=== PATIENT | female | born 1955 | race African-American/Black ===

== ENCOUNTER 2018-01-21 07:42 | Emergency (ER) | payer BC ==
[~2018-01-21] VITALS: Ht 160 cm; Wt 71.0 kg
[2018-01-21] MEDS ORDERED: KETOROLAC 30MG/ML VIAL IM ONE (08:45)
[2018-01-21 09:51] VITALS: BP 150/68
== END 2018-01-21 09:53 | disposition home or self-care (01) ==
LOC: ER 08:45
DX: M43.02 Spondylolysis, cervical region (principal); S16.1XXA Strain of muscle, fascia and tendon at neck level, initial encounter; M25.511 Pain in right shoulder; M25.512 Pain in left shoulder; R03.0 Elevated blood-pressure reading, without diagnosis of hypertension; X58.XXXA Exposure to other specified factors, initial encounter; Y93.9 Activity, unspecified; Y92.9 Unspecified place or not applicable; E11.9 Type 2 diabetes mellitus without complications; Z90.710 Acquired absence of both cervix and uterus; Z79.899 Other long term (current) drug therapy
CPT/HCPCS: 72040; 96372; 99284; J1885

== ENCOUNTER 2018-08-11 01:59 | Emergency (ER) | payer BC ==
[~2018-08-11] VITALS: Ht 160 cm; Wt 69.5 kg
[2018-08-11] MEDS ORDERED: IBUPROFEN 800MG TABLET PO ONE (03:30)
[2018-08-11 03:44] VITALS: BP 153/77
== END 2018-08-11 03:46 | disposition home or self-care (01) ==
LOC: ER 01:59
DX: S16.1XXA Strain of muscle, fascia and tendon at neck level, initial encounter (principal); M25.511 Pain in right shoulder; M54.6 Pain in thoracic spine; E11.9 Type 2 diabetes mellitus without complications; Z90.710 Acquired absence of both cervix and uterus; X58.XXXA Exposure to other specified factors, initial encounter; Y93.89 Activity, other specified; Y92.89 Other specified places as the place of occurrence of the external cause; Y99.8 Other external cause status
CPT/HCPCS: 99283

== ENCOUNTER → 2020-02-15 | Outpatient (CLI) | payer BC | END | disposition home or self-care (01) | LOC: RAD 07:51 | PROVIDERS: ATTEND Internal Medicine Pulmonary Disease | DX: R07.9 Chest pain, unspecified (principal) | CPT/HCPCS: 71046 ==

== ENCOUNTER → 2020-02-27 | Outpatient (CLI) | payer BC ==
[2020-02-27 06:51] LABS: CLARITY URINE CLEAR (CLEAR); COLOR URINE YELLOW (YELLOW); KETONES URINE NEGATIVE (NEGATIVE); LEUKOCYTE ESTERASE URINE TRACE (NEGATIVE); NITRITE URINE NEGATIVE (NEGATIVE); OCCULT BLOOD URINE NEGATIVE (NEGATIVE); PROTEIN URINE NEGATIVE (NEGATIVE); SPECIFIC GRAVITY URINE 1.025 (1.005-1.030); UROBILINOGEN URINE 0.2 E.U./dL (0.2-1.0)
[2020-02-27 06:58] LABS: PARTIAL THROMBOPLASTIN TIME 27.9 sec (23.4-31.0); PROTHROMBIN TIME 10.6 sec (9.6-11.0)
[2020-02-27 07:13] LABS: CHLORIDE 103 mEq/L (98-107)
[2020-02-27 07:18] LABS: BASOPHILS % 0.3 % (0.0-2.0); EOSINOPHILS % 2.1 % (0.0-5.0); HEMATOCRIT. 34.1 % (36.0-48.0); HEMOGLOBIN. 10.8 g/dL (12.0-16.0); LYMPHOCYTES % 8.9 % (20.0-50.0); MEAN CORPUSCULAR HEMOGLOBIN 23.9 pg (28.0-32.0); MEAN CORPUSCULAR VOLUME 75.6 fL (81.0-99.0); MEAN PLATELET VOLUME 7.5 fl (7.4-10.4); MONOCYTES % 6.4 % (2.0-8.0); NEUTROPHILS % 82.3 % (40.0-76.0); PLATELET 473 x1000/uL (130-400); RED BLOOD CELL COUNT 4.51 mill/uL (4.2-5.4); RED CELL DISTRIBUTION WIDTH 16.4 % (11.6-14.6)
[2020-02-27 07:23] LABS: LDL CHOLESTEROL 106 mg/dL (5-100)
[2020-02-27 07:24] LABS: HDL CHOLESTEROL 53 mg/dL (40-59)
== END | disposition home or self-care (01) ==
LOC: LAB 02-26 08:18
PROVIDERS: ATTEND Internal Medicine Pulmonary Disease
DX: E11.9 Type 2 diabetes mellitus without complications (principal); K92.1 Melena
CPT/HCPCS: 36415; 80053; 80061; 81003; 83036; 85025

== ENCOUNTER → 2020-03-12 | Outpatient (CLI) | payer BC ==
[~2020-03-12] MED LIST: BARIUM SULFATE 450ML ORAL SUSP ONE; IOHEXOL-300 100 ML BOTTLE ONE
== END | disposition home or self-care (01) ==
LOC: CT 07:59
PROVIDERS: ATTEND Internal Medicine Pulmonary Disease
DX: C18.3 Malignant neoplasm of hepatic flexure (principal); C18.1 Malignant neoplasm of appendix; Z90.710 Acquired absence of both cervix and uterus
CPT/HCPCS: 74177; Q9967; Z7610

== ENCOUNTER → 2020-03-19 | Outpatient (CLI) | payer BC ==
[2020-03-19 06:33] LABS: CLARITY URINE CLEAR (CLEAR); COLOR URINE YELLOW (YELLOW); KETONES URINE TRACE (NEGATIVE); LEUKOCYTE ESTERASE URINE NEGATIVE (NEGATIVE); NITRITE URINE NEGATIVE (NEGATIVE); OCCULT BLOOD URINE NEGATIVE (NEGATIVE); PROTEIN URINE NEGATIVE (NEGATIVE); SPECIFIC GRAVITY URINE 1.034 (1.005-1.030)
== END | disposition home or self-care (01) ==
LOC: LAB 06:10
PROVIDERS: ATTEND Internal Medicine Pulmonary Disease
DX: N39.0 Urinary tract infection, site not specified (principal)
CPT/HCPCS: 81003

== ENCOUNTER → 2020-05-16 | Outpatient (CLI) | payer BC | END | disposition home or self-care (01) | LOC: MRI 11:49 | PROVIDERS: ATTEND Specialist | DX: R10.9 Unspecified abdominal pain (principal) | CPT/HCPCS: 72195 ==

== ENCOUNTER → 2020-06-20 | Outpatient (CLI) | payer BC ==
[~2020-06-20] MED LIST changes: -BARIUM SULFATE 450ML ORAL SUSP ONE; +GADOTERATE MEGLUMINE 5 MMOL/10 ML VIAL IV ONE
== END | disposition home or self-care (01) ==
LOC: MRI 08:00
DX: K86.2 Cyst of pancreas (principal); R92.1 Mammographic calcification found on diagnostic imaging of breast; R91.1 Solitary pulmonary nodule; K63.89 Other specified diseases of intestine
CPT/HCPCS: 71260; 72197; 74177; A9577; Q9967

== ENCOUNTER → 2020-07-01 | Outpatient (CLI) | payer BC ==
[2020-07-01 10:57] LABS: BASOPHILS % 0.3 % (0.0-2.0); EOSINOPHILS % 1.9 % (0.0-5.0); HEMATOCRIT. 27.8 % (36.0-48.0); HEMOGLOBIN. 8.3 g/dL (12.0-16.0); LYMPHOCYTES % 8.4 % (20.0-50.0); MEAN CORPUSCULAR VOLUME 67.1 fL (81.0-99.0); MEAN PLATELET VOLUME 6.2 fl (7.4-10.4); MONOCYTES % 9.2 % (2.0-8.0); NEUTROPHILS % 80.2 % (40.0-76.0); PLATELET 639 x1000/uL (130-400); RED BLOOD CELL COUNT 4.15 mill/uL (4.2-5.4)
[2020-07-01 11:00] LABS: CLARITY URINE CLEAR (CLEAR); COLOR URINE YELLOW (YELLOW); KETONES URINE NEGATIVE (NEGATIVE); LEUKOCYTE ESTERASE URINE NEGATIVE (NEGATIVE); NITRITE URINE NEGATIVE (NEGATIVE); OCCULT BLOOD URINE NEGATIVE (NEGATIVE); PH URINE 5.5 (4.5-8.0); PROTEIN URINE NEGATIVE (NEGATIVE); UROBILINOGEN URINE 0.2 E.U./dL (0.2-1.0)
[2020-07-01 11:23] LABS: PARTIAL THROMBOPLASTIN TIME 26.3 sec (23.4-31.0); PROTHROMBIN TIME 10.3 sec (9.6-11.0)
[2020-07-01 11:54] LABS: CHLORIDE 105 mEq/L (98-107)
[2020-07-01 13:52] LABS: PLATELET ESTIMATE INCREASED
== END | disposition home or self-care (01) ==
LOC: RAD 10:29
PROVIDERS: ATTEND Internal Medicine Pulmonary Disease
DX: Z01.818 Encounter for other preprocedural examination (principal); K63.9 Disease of intestine, unspecified
CPT/HCPCS: 36415; 71046; 80048; 81003; 85025; 93005

== ENCOUNTER → 2020-07-08 | Outpatient (CLI) | payer BC ==
[~2020-07-08] MED LIST changes: +EMPA10TA PO; -GADOTERATE MEGLUMINE 5 MMOL/10 ML VIAL IV ONE; -IOHEXOL-300 100 ML BOTTLE ONE; +METF-416 PO
== END | disposition home or self-care (01) ==
LOC: LAB 09:20
PROVIDERS: ATTEND Surgery
DX: Z01.812 Encounter for preprocedural laboratory examination (principal); Z20.822 Contact with and (suspected) exposure to COVID-19
CPT/HCPCS: 87426

== ENCOUNTER 2020-07-09 05:23 | Inpatient (IN) | payer BC ==
[~2020-07-09] VITALS: Ht 157.5 cm; Wt 65.8 kg
[2020-07-09] VITALS (21 sets, daily range): BP systolic 102–130; BP diastolic 54–97
[2020-07-09] MEDS ORDERED: SODIUM CHLORIDE 0.9% 1,000 ML IV SCH (05:30)
[2020-07-09] MEDS ORDERED: SKIN ADHESIVE 0.7 GM EA TOP ONE (06:41)
[2020-07-09] MEDS ORDERED: BACITRACIN 50,000 UNITS/VIAL ONE (06:41)
[2020-07-09] MEDS ORDERED: BUPIVACAINE HCL 0.5% (5MG/ML) 50ML ONE (06:41)
[2020-07-09] MEDS ORDERED: MIDAZOLAM HCL 2 MG/2 ML VIAL ONE (07:01)
[2020-07-09] MEDS ORDERED: PROPOFOL 200MG/20ML VIAL IV ONE (07:01)
[2020-07-09] MEDS ORDERED: ROCURONIUM BROMIDE 10MG/ML VIAL 5ML IV ONE (07:01)
[2020-07-09] MEDS ORDERED: FENTANYL CITRATE/PF 50MCG/ML 5ML VIAL ONE ×2 (07:01→08:47)
[2020-07-09] MEDS ORDERED: SUCCINYLCHOLINE CHLORIDE 200MG/10ML IV ONE (07:02)
[2020-07-09] MEDS ORDERED: CEFAZOLIN SODIUM 1000MG/VIAL ONE (07:02)
[2020-07-09] MEDS ORDERED: LIDOCAINE HCL 2% JELLY 5ML ONE (07:02)
[2020-07-09] MEDS ORDERED: ONDANSETRON HCL 4MG/2ML INJ ONE (07:02)
[2020-07-09] MEDS ORDERED: LIDOCAINE HCL 1% 20ML VIAL (Pyxis) INJ ONE (07:02)
[2020-07-09] MEDS ORDERED: METOCLOPRAMIDE HCL 10MG/2ML VIAL ONE (07:02)
[2020-07-09] MEDS ORDERED: MORPHINE SULFATE 2 MG/ML CPJ (NOT FOR IM USE) IV PRN ×2 (07:15→10:45)
[2020-07-09] MEDS ORDERED: GLYCOPYRROLATE 0.2 MG/ML 2ML VIAL ONE (07:18)
[2020-07-09] MEDS ORDERED: NEOSTIGMINE METHYLSULFATE 1MG/ML 10 ML VIAL ONE (07:18)
[2020-07-09] MEDS ORDERED: EMPA10TA PO (08:09)
[2020-07-09] MEDS ORDERED: METF-416 PO (08:11)
[2020-07-09] MEDS ORDERED: PHENYLEPHRINE HCL 10 MG/ML 1ML (IV VIAL) IV ONE (08:46)
[2020-07-09] MEDS ORDERED: SODIUM CHLORIDE 0.9% 1,000 ML IV ONE (10:45)
[2020-07-09] MEDS ORDERED: MEPERIDINE HCL/PF 25MG/ML CPJ IV PRN (10:45)
[2020-07-09] MEDS ORDERED: ONDANSETRON HCL 4MG/2ML INJ IV PRN (10:45)
[2020-07-09] MEDS ORDERED: HYDROMORPHONE HCL/PF 2MG/ML CPJ IV PRN (10:45)
[2020-07-09] MEDS ORDERED: NALOXONE INJ IV PRN (12:00)
[2020-07-09] MEDS ORDERED: ONDANSETRON INJ IV PRN (12:00)
[2020-07-09] MEDS ORDERED: DIPHENHYDRAMINE INJ IV PRN (12:00)
[2020-07-09] MEDS: HYDROMORPHONE PCA 10MG/50ML IV PRN (12:15)
[2020-07-09 13:03] LABS: HEMATOCRIT 37.2 % (36.0-48.0); HEMOGLOBIN 11.9 g/dL (12.0-16.0); MEAN CORPUSCULAR HEMOGLOBIN 23.8 pg (28.0-32.0); MEAN CORPUSCULAR VOLUME 74.3 fL (81.0-99.0); PLATELET 413 x1000/uL (130-400); RED BLOOD CELL COUNT 5.01 mill/uL (4.2-5.4); RED CELL DISTRIBUTION WIDTH 25.5 % (11.6-14.6)
[2020-07-09] MEDS ORDERED: DEXTROSE 50% WATER 50ML SYRINGE IV PRN (20:15)
[2020-07-09] MEDS: DEXT 5%/0.45% NACL KCL 20MEQ/L 1,000 ML IV SCH (20:53)
[2020-07-09] MEDS: BLOOD SUGAR DIAGNOSTIC STRIP TEST SCH (21:00)
[2020-07-09] MEDS: INSULIN LISPRO 100 UNITS/ML SUBCUT SCH (21:00)
[2020-07-10] VITALS (93 sets, daily range): BP systolic 73–126; BP diastolic 31–64
[2020-07-10] MEDS ORDERED: SODIUM CHLORIDE 0.9% 250 ML IV ONE ×2 (02:45→06:30)
[2020-07-10] MEDS: HYDROMORPHONE PCA 10MG/50ML IV PRN (03:48)
[2020-07-10 05:45] LABS: CHLORIDE 117 mEq/L (98-107)
[2020-07-10 05:52] LABS: HEMATOCRIT. 34.8 % (36.0-48.0); HEMOGLOBIN. 10.6 g/dL (12.0-16.0); MEAN CORPUSCULAR HEMOGLOBIN 22.9 pg (28.0-32.0); MEAN CORPUSCULAR VOLUME 74.9 fL (81.0-99.0); MEAN PLATELET VOLUME 6.8 fl (7.4-10.4); PLATELET 383 x1000/uL (130-400); RED BLOOD CELL COUNT 4.65 mill/uL (4.2-5.4)
[2020-07-10] MEDS: DEXT 5%/0.45% NACL KCL 20MEQ/L 1,000 ML IV SCH ×2 (06:21→15:51)
[2020-07-10 07:20] LABS: PLATELET ESTIMATE NORMAL
[2020-07-10] MEDS: BLOOD SUGAR DIAGNOSTIC STRIP TEST SCH ×4 (07:50→21:07)
[2020-07-10] MEDS: INSULIN LISPRO 100 UNITS/ML SUBCUT SCH ×4 (08:20→21:00)
[2020-07-10 08:26] LABS: T4 FREE 1.48 ng/dL (0.76-1.46)
[2020-07-10] MEDS: ENOXAPARIN 40MG/0.4ML SYR SUBCUT SCH (09:12)
[2020-07-10] MEDS ORDERED: SODIUM CHLORIDE 0.9% 500 ML IV ONE (09:45)
[2020-07-10] MEDS ORDERED: IOHEXOL-350 100 ML BOTTLE ONE ×2 (14:23→14:46)
[2020-07-10] MEDS ORDERED: METOPROLOL TARTRATE 5MG/5ML VIAL IV NR (15:45)
[2020-07-10] MEDS: METOPROLOL TARTRATE 5MG/5ML VIAL IV PRN ×3 (17:55→23:20)
[2020-07-11] VITALS (91 sets, daily range): BP systolic 100–139; BP diastolic 39–121
[2020-07-11] MEDS: METOPROLOL TARTRATE 5MG/5ML VIAL IV PRN ×4 (01:56→20:19)
[2020-07-11] MEDS: DEXT 5%/0.45% NACL KCL 20MEQ/L 1,000 ML IV SCH ×3 (01:56→22:03)
[2020-07-11] MEDS ORDERED: MORPHINE SULFATE 4 MG/ML CPJ (NOT FOR IM USE) IV ONE (03:12)
[2020-07-11] MEDS: MORPHINE SULFATE 4 MG/ML CPJ (NOT FOR IM USE) IV PRN ×2 (03:32→08:44)
[2020-07-11 05:38] LABS: HEMATOCRIT. 28.8 % (36.0-48.0); HEMOGLOBIN. 9.1 g/dL (12.0-16.0); MEAN CORPUSCULAR HEMOGLOBIN 23.2 pg (28.0-32.0); MEAN CORPUSCULAR VOLUME 73.5 fL (81.0-99.0); MEAN PLATELET VOLUME 7.1 fl (7.4-10.4); PLATELET 368 x1000/uL (130-400); RED BLOOD CELL COUNT 3.92 mill/uL (4.2-5.4); RED CELL DISTRIBUTION WIDTH 24.9 % (11.6-14.6)
[2020-07-11 05:43] LABS: CHLORIDE 115 mEq/L (98-107)
[2020-07-11 05:57] LABS: PHOSPHORUS 1.3 mg/dL (2.5-4.9)
[2020-07-11 07:26] LABS: PLATELET ESTIMATE NORMAL
[2020-07-11] MEDS: INSULIN LISPRO 100 UNITS/ML SUBCUT SCH ×4 (08:20→22:03)
[2020-07-11] MEDS: ENOXAPARIN 40MG/0.4ML SYR SUBCUT SCH (08:45)
[2020-07-11] MEDS: BLOOD SUGAR DIAGNOSTIC STRIP TEST SCH ×4 (08:45→21:00)
[2020-07-11] MEDS ORDERED: MORPHINE SULFATE 4 MG/ML CPJ (NOT FOR IM USE) IV PRN (10:00)
[2020-07-11] MEDS ORDERED: POTASSIUM PHOS,M-BASIC-D-BASIC 30 MMOL in DEXT 5% WATER 500 ML IV SCH (11:00)
[2020-07-11] MEDS ORDERED: HYDROMORPHONE HCL/PF 2MG/ML CPJ IV PRN (11:45)
[2020-07-11] MEDS: HYDROMORPHONE HCL/PF 2MG/ML CPJ IV PRN ×4 (13:24→23:56)
[2020-07-12] VITALS (81 sets, daily range): BP systolic 105–145; BP diastolic 50–78
[2020-07-12] MEDS: METOPROLOL TARTRATE 5MG/5ML VIAL IV PRN ×4 (01:56→18:35)
[2020-07-12] MEDS: HYDROMORPHONE HCL/PF 2MG/ML CPJ IV PRN ×4 (04:31→23:27)
[2020-07-12 06:20] LABS: HEMATOCRIT. 27.7 % (36.0-48.0); HEMOGLOBIN. 8.8 g/dL (12.0-16.0); MEAN CORPUSCULAR HEMOGLOBIN 22.9 pg (28.0-32.0); MEAN CORPUSCULAR VOLUME 71.9 fL (81.0-99.0); MEAN PLATELET VOLUME 6.8 fl (7.4-10.4); PLATELET 361 x1000/uL (130-400); RED BLOOD CELL COUNT 3.85 mill/uL (4.2-5.4); RED CELL DISTRIBUTION WIDTH 25.9 % (11.6-14.6)
[2020-07-12 06:25] LABS: CHLORIDE 108 mEq/L (98-107)
[2020-07-12 06:33] LABS: PHOSPHORUS 2.3 mg/dL (2.5-4.9)
[2020-07-12 06:34] LABS: TOTAL IRON BINDING CAPACITY 184 ug/dL (250-450)
[2020-07-12] MEDS: BLOOD SUGAR DIAGNOSTIC STRIP TEST SCH ×4 (08:12→20:38)
[2020-07-12] MEDS: ENOXAPARIN 40MG/0.4ML SYR SUBCUT SCH (08:21)
[2020-07-12] MEDS: INSULIN LISPRO 100 UNITS/ML SUBCUT SCH ×4 (08:22→20:38)
[2020-07-12] MEDS: DEXT 5%/0.45% NACL KCL 20MEQ/L 1,000 ML IV SCH ×2 (08:51→18:19)
[2020-07-12 10:43] LABS: PLATELET ESTIMATE NORMAL
[2020-07-13] VITALS (12 sets, daily range): BP systolic 116–130; BP diastolic 55–74
[2020-07-13] MEDS: HYDROMORPHONE HCL/PF 2MG/ML CPJ IV PRN ×5 (02:40→21:55)
[2020-07-13] MEDS: DEXT 5%/0.45% NACL KCL 20MEQ/L 1,000 ML IV SCH ×2 (04:00→14:34)
[2020-07-13] MEDS: BLOOD SUGAR DIAGNOSTIC STRIP TEST SCH ×4 (05:56→21:32)
[2020-07-13] MEDS: INSULIN LISPRO 100 UNITS/ML SUBCUT SCH ×4 (06:40→21:00)
[2020-07-13 08:23] LABS: HEMATOCRIT. 26.3 % (36.0-48.0); HEMOGLOBIN. 8.6 g/dL (12.0-16.0); MEAN CORPUSCULAR HEMOGLOBIN 23.8 pg (28.0-32.0); MEAN CORPUSCULAR VOLUME 72.4 fL (81.0-99.0); MEAN PLATELET VOLUME 7.4 fl (7.4-10.4); PLATELET 366 x1000/uL (130-400); RED BLOOD CELL COUNT 3.63 mill/uL (4.2-5.4); RED CELL DISTRIBUTION WIDTH 26.6 % (11.6-14.6)
[2020-07-13 08:39] LABS: CHLORIDE 107 mEq/L (98-107)
[2020-07-13 08:47] LABS: PHOSPHORUS 2.8 mg/dL (2.5-4.9)
[2020-07-13] MEDS: ENOXAPARIN 40MG/0.4ML SYR SUBCUT SCH (09:48)
[2020-07-13] MEDS: METOPROLOL TARTRATE 5MG/5ML VIAL IV PRN ×2 (09:57→19:01)
[2020-07-13] MEDS: POTASSIUM CHLORIDE 20MEQ TABLET SR PO SCH ×2 (14:34→19:00)
[2020-07-13] MEDS: PIPERACILLIN/TAZOBACTAM 3.375 G in DEXT 5% WATER 100 ML IV SCH ×2 (17:54→21:37)
[2020-07-13 22:16] LABS: NUCLEATED RED BLOOD CELLS 1 /100 WBC
[2020-07-13 22:17] LABS: PLATELET ESTIMATE NORMAL
[2020-07-14] VITALS (12 sets, daily range): BP systolic 103–136; BP diastolic 53–73
[2020-07-14] MEDS: DEXT 5%/0.45% NACL KCL 20MEQ/L 1,000 ML IV SCH ×3 (00:48→20:00)
[2020-07-14] MEDS: HYDROMORPHONE HCL/PF 2MG/ML CPJ IV PRN ×6 (02:24→22:56)
[2020-07-14] MEDS: PIPERACILLIN/TAZOBACTAM 3.375 G in DEXT 5% WATER 100 ML IV SCH ×4 (05:26→22:18)
[2020-07-14] MEDS: BLOOD SUGAR DIAGNOSTIC STRIP TEST SCH ×4 (06:56→20:33)
[2020-07-14] MEDS: INSULIN LISPRO 100 UNITS/ML SUBCUT SCH ×4 (06:57→20:33)
[2020-07-14 07:49] LABS: HEMATOCRIT. 24.8 % (36.0-48.0); MEAN CORPUSCULAR HEMOGLOBIN 23.1 pg (28.0-32.0); MEAN CORPUSCULAR VOLUME 71.5 fL (81.0-99.0); MEAN PLATELET VOLUME 7.2 fl (7.4-10.4); PLATELET 384 x1000/uL (130-400); RED BLOOD CELL COUNT 3.47 mill/uL (4.2-5.4); RED CELL DISTRIBUTION WIDTH 26.8 % (11.6-14.6)
[2020-07-14 07:59] LABS: CHLORIDE 106 mEq/L (98-107)
[2020-07-14 08:07] LABS: PHOSPHORUS 2.5 mg/dL (2.5-4.9)
[2020-07-14] MEDS: ENOXAPARIN 40MG/0.4ML SYR SUBCUT SCH (09:00)
[2020-07-14] MEDS ORDERED: POTASSIUM CHLORIDE 20MEQ/PACKET PO NR ×2 (09:45→15:00)
[2020-07-14 13:41] LABS: PLATELET ESTIMATE NORMAL
[2020-07-14] MEDS ORDERED: POTASSIUM CHLORIDE INJ 40 MEQ in DEXT 5% WATER 250 ML IV SCH (16:00)
[2020-07-15] VITALS (11 sets, daily range): BP systolic 100–127; BP diastolic 50–67
[2020-07-15] MEDS: PIPERACILLIN/TAZOBACTAM 3.375 G in DEXT 5% WATER 100 ML IV SCH ×4 (04:50→21:46)
[2020-07-15] MEDS: HYDROMORPHONE HCL/PF 2MG/ML CPJ IV PRN ×5 (04:56→21:47)
[2020-07-15] MEDS: DEXT 5%/0.45% NACL KCL 20MEQ/L 1,000 ML IV SCH ×3 (06:00→16:00)
[2020-07-15] MEDS: METOPROLOL TARTRATE 5MG/5ML VIAL IV PRN (06:15)
[2020-07-15] MEDS: BLOOD SUGAR DIAGNOSTIC STRIP TEST SCH ×4 (06:30→21:16)
[2020-07-15] MEDS: IRON SUCROSE COMPLEX 100 MG/5 ML ML IV SCH (08:44)
[2020-07-15] MEDS: ENOXAPARIN 40MG/0.4ML SYR SUBCUT SCH (08:45)
[2020-07-15] MEDS: INSULIN LISPRO 100 UNITS/ML SUBCUT SCH ×4 (08:52→21:00)
[2020-07-15 09:40] LABS: HEMATOCRIT. 25.5 % (36.0-48.0); MEAN CORPUSCULAR HEMOGLOBIN 22.7 pg (28.0-32.0); MEAN CORPUSCULAR VOLUME 72.1 fL (81.0-99.0); MEAN PLATELET VOLUME 7.2 fl (7.4-10.4); PLATELET 418 x1000/uL (130-400); RED BLOOD CELL COUNT 3.54 mill/uL (4.2-5.4); RED CELL DISTRIBUTION WIDTH 27.5 % (11.6-14.6)
[2020-07-15 09:53] LABS: CHLORIDE 105 mEq/L (98-107)
[2020-07-15] MEDS ORDERED: POTASSIUM CHLORIDE 20MEQ/PACKET PO NR ×2 (11:00→19:15)
[2020-07-15 11:03] LABS: PLATELET ESTIMATE NORMAL
[2020-07-15 19:09] LABS: CHLORIDE 104 mEq/L (98-107)
[2020-07-16] VITALS: BP 118/57
[2020-07-16] MEDS: HYDROMORPHONE HCL/PF 2MG/ML CPJ IV PRN ×4 (02:49→21:52)
[2020-07-16 04:00] VITALS: BP 113/51
[2020-07-16] MEDS: PIPERACILLIN/TAZOBACTAM 3.375 G in DEXT 5% WATER 100 ML IV SCH ×4 (05:15→22:42)
[2020-07-16] MEDS: INSULIN LISPRO 100 UNITS/ML SUBCUT SCH ×4 (05:35→22:50)
[2020-07-16] MEDS: DEXT 5%/0.45% NACL KCL 20MEQ/L 1,000 ML IV SCH ×3 (05:35→22:41)
[2020-07-16] MEDS: BLOOD SUGAR DIAGNOSTIC STRIP TEST SCH ×4 (05:35→21:00)
[2020-07-16 07:46] LABS: HEMATOCRIT. 23.7 % (36.0-48.0); HEMOGLOBIN. 7.7 g/dL (12.0-16.0); MEAN CORPUSCULAR HEMOGLOBIN 23.6 pg (28.0-32.0); MEAN CORPUSCULAR VOLUME 72.6 fL (81.0-99.0); MEAN PLATELET VOLUME 7.7 fl (7.4-10.4); PLATELET 426 x1000/uL (130-400); RED BLOOD CELL COUNT 3.26 mill/uL (4.2-5.4); RED CELL DISTRIBUTION WIDTH 27.7 % (11.6-14.6)
[2020-07-16 07:53] LABS: CHLORIDE 102 mEq/L (98-107)
[2020-07-16 08:00] VITALS: BP 142/76
[2020-07-16 08:02] LABS: PHOSPHORUS 2.2 mg/dL (2.5-4.9)
[2020-07-16] MEDS: IRON SUCROSE COMPLEX 100 MG/5 ML ML IV SCH (08:26)
[2020-07-16] MEDS: ENOXAPARIN 40MG/0.4ML SYR SUBCUT SCH (08:26)
[2020-07-16 11:34] VITALS: BP 121/62
[2020-07-16] MEDS ORDERED: POTASSIUM CHLORIDE 20MEQ/PACKET PO NR ×2 (13:15→20:00)
[2020-07-16 16:00] VITALS: BP 135/71
[2020-07-16] MEDS ORDERED: POTASSIUM PHOS,M-BASIC-D-BASIC 30 MMOL in DEXTROSE 5% WATER 1,000 ML IV SCH (18:45)
[2020-07-16 20:00] VITALS: BP 103/70
[2020-07-16 22:40] LABS: PLATELET ESTIMATE INCREASED
[2020-07-17] VITALS: BP 126/59
[2020-07-17] MEDS: ONDANSETRON HCL 4MG/2ML INJ IV PRN (00:34)
[2020-07-17] MEDS: HYDROMORPHONE HCL/PF 2MG/ML CPJ IV PRN ×4 (01:59→19:40)
[2020-07-17] MEDS: PIPERACILLIN/TAZOBACTAM 3.375 G in DEXT 5% WATER 100 ML IV SCH ×3 (04:26→15:35)
[2020-07-17] MEDS: METOPROLOL TARTRATE 5MG/5ML VIAL IV PRN (04:30)
[2020-07-17 06:43] LABS: HEMATOCRIT. 25.4 % (36.0-48.0); HEMOGLOBIN. 8.1 g/dL (12.0-16.0); MEAN CORPUSCULAR HEMOGLOBIN 23.1 pg (28.0-32.0); MEAN CORPUSCULAR VOLUME 72.7 fL (81.0-99.0); MEAN PLATELET VOLUME 7.8 fl (7.4-10.4); PLATELET 496 x1000/uL (130-400); RED BLOOD CELL COUNT 3.49 mill/uL (4.2-5.4); RED CELL DISTRIBUTION WIDTH 28.2 % (11.6-14.6)
[2020-07-17 06:56] LABS: CHLORIDE 100 mEq/L (98-107)
[2020-07-17] MEDS: BLOOD SUGAR DIAGNOSTIC STRIP TEST SCH ×4 (06:56→21:58)
[2020-07-17 07:06] LABS: PHOSPHORUS 2.4 mg/dL (2.5-4.9)
[2020-07-17] MEDS: INSULIN LISPRO 100 UNITS/ML SUBCUT SCH ×5 (07:50→22:04)
[2020-07-17 08:00] VITALS: BP 110/48
[2020-07-17] MEDS: IRON SUCROSE COMPLEX 100 MG/5 ML ML IV SCH (08:29)
[2020-07-17] MEDS: ENOXAPARIN 40MG/0.4ML SYR SUBCUT SCH (08:29)
[2020-07-17] MEDS: DEXT 5%/0.45% NACL KCL 20MEQ/L 1,000 ML IV SCH (08:41)
[2020-07-17] MEDS ORDERED: POTASSIUM CHLORIDE 20MEQ/PACKET PO NR (10:00)
[2020-07-17 12:14] VITALS: BP 135/63
[2020-07-17 13:36] LABS: ATYPICAL LYMPHOCYTES 1; NUCLEATED RED BLOOD CELLS 1 /100 WBC; PLATELET ESTIMATE INCREASED
[2020-07-17] MEDS ORDERED: POTASSIUM CHLORIDE INJ 40 MEQ in DEXT 5% WATER 500 ML IV ONE (14:00)
[2020-07-17] MEDS: POTASSIUM PHOS,M-BASIC-D-BASIC 30 MMOL in DEXT 5% WATER 500 ML IV SCH ×2 (15:34→15:41)
[2020-07-17 16:03] VITALS: BP 113/55
[2020-07-17] MEDS: DEXT 5%/0.45% NACL 1000ML 1,000 ML IV SCH (16:12)
[2020-07-17] MEDS: MEROPENEM 1,000 MG in SODIUM CHLORIDE 0.9% 100 ML IV SCH (16:19)
[2020-07-17] MEDS: FLUCONAZOLE 400MG/200ML BAG 200 ML IV SCH (16:21)
[2020-07-17] MEDS: POTASSIUM CHLORIDE INJ 40 MEQ in DEXT 5% WATER 250 ML IV SCH (18:06)
[2020-07-17 20:35] VITALS: BP 129/64
[2020-07-18] VITALS (7 sets, daily range): BP systolic 124–150; BP diastolic 57–80
[2020-07-18] MEDS: HYDROMORPHONE HCL/PF 2MG/ML CPJ IV PRN ×4 (01:50→23:58)
[2020-07-18] MEDS: MEROPENEM 1,000 MG in SODIUM CHLORIDE 0.9% 100 ML IV SCH ×3 (01:57→17:28)
[2020-07-18] MEDS: ONDANSETRON HCL 4MG/2ML INJ IV PRN ×2 (01:57→17:45)
[2020-07-18] MEDS: DEXT 5%/0.45% NACL 1000ML 1,000 ML IV SCH ×3 (01:59→21:45)
[2020-07-18] MEDS: POTASSIUM CHLORIDE INJ 40 MEQ in DEXT 5% WATER 250 ML IV SCH ×2 (02:08→15:00)
[2020-07-18 06:34] LABS: CHLORIDE 103 mEq/L (98-107)
[2020-07-18 06:43] LABS: PHOSPHORUS 2.6 mg/dL (2.5-4.9)
[2020-07-18] MEDS: BLOOD SUGAR DIAGNOSTIC STRIP TEST SCH ×4 (07:20→21:20)
[2020-07-18] MEDS: INSULIN LISPRO 100 UNITS/ML SUBCUT SCH ×4 (07:50→21:00)
[2020-07-18] MEDS: ENOXAPARIN 40MG/0.4ML SYR SUBCUT SCH (09:00)
[2020-07-18 09:33] LABS: HEMATOCRIT. 24.9 % (36.0-48.0); HEMOGLOBIN. 7.7 g/dL (12.0-16.0); MEAN CORPUSCULAR HEMOGLOBIN 22.7 pg (28.0-32.0); MEAN PLATELET VOLUME 7.6 fl (7.4-10.4); PLATELET 542 x1000/uL (130-400); RED BLOOD CELL COUNT 3.41 mill/uL (4.2-5.4); RED CELL DISTRIBUTION WIDTH 28.1 % (11.6-14.6)
[2020-07-18] MEDS: FLUCONAZOLE 400MG/200ML BAG 200 ML IV SCH (17:28)
[2020-07-18 20:18] LABS: PLATELET ESTIMATE INCREASED
[2020-07-19] VITALS: BP 140/61
[2020-07-19] MEDS: MEROPENEM 1,000 MG in SODIUM CHLORIDE 0.9% 100 ML IV SCH ×3 (02:03→17:44)
[2020-07-19 04:00] VITALS: BP 134/61
[2020-07-19] MEDS: HYDROMORPHONE HCL/PF 2MG/ML CPJ IV PRN ×3 (04:45→22:03)
[2020-07-19] MEDS: DEXT 5%/0.45% NACL 1000ML 1,000 ML IV SCH ×2 (04:48→22:02)
[2020-07-19 06:24] LABS: CHLORIDE 101 mEq/L (98-107)
[2020-07-19 06:30] LABS: PHOSPHORUS 2.3 mg/dL (2.5-4.9)
[2020-07-19 06:33] LABS: HEMATOCRIT. 23.3 % (36.0-48.0); HEMOGLOBIN. 7.5 g/dL (12.0-16.0); MEAN CORPUSCULAR HEMOGLOBIN 23.8 pg (28.0-32.0); MEAN CORPUSCULAR VOLUME 73.8 fL (81.0-99.0); MEAN PLATELET VOLUME 7.7 fl (7.4-10.4); PLATELET 440 x1000/uL (130-400); RED BLOOD CELL COUNT 3.16 mill/uL (4.2-5.4); RED CELL DISTRIBUTION WIDTH 28.8 % (11.6-14.6)
[2020-07-19] MEDS: BLOOD SUGAR DIAGNOSTIC STRIP TEST SCH ×4 (07:20→21:47)
[2020-07-19] MEDS: ENOXAPARIN 40MG/0.4ML SYR SUBCUT SCH (10:39)
[2020-07-19] MEDS: INSULIN LISPRO 100 UNITS/ML SUBCUT SCH ×4 (10:56→22:04)
[2020-07-19 13:55] LABS: PLATELET ESTIMATE INCREASED
[2020-07-19] MEDS ORDERED: POTASSIUM PHOS,M-BASIC-D-BASIC 15 MMOL in DEXT 5% WATER 245 ML IV NR (15:45)
[2020-07-19] MEDS: FLUCONAZOLE 400MG/200ML BAG 200 ML IV SCH (17:44)
[2020-07-19 20:00] VITALS: BP 133/58
[2020-07-19] MEDS: KETOROLAC 15MG/ML VIAL IV PRN (21:02)
[2020-07-19] MEDS: ONDANSETRON HCL 4MG/2ML INJ IV PRN (22:14)
[2020-07-20] VITALS: BP 132/58
[2020-07-20] MEDS: MEROPENEM 1,000 MG in SODIUM CHLORIDE 0.9% 100 ML IV SCH ×3 (02:06→18:22)
[2020-07-20 04:00] VITALS: BP 127/85
[2020-07-20] MEDS: HYDROMORPHONE HCL/PF 2MG/ML CPJ IV PRN (05:50)
[2020-07-20 06:33] LABS: CHLORIDE 97 mEq/L (98-107)
[2020-07-20 06:40] LABS: PHOSPHORUS 2.9 mg/dL (2.5-4.9)
[2020-07-20 06:48] LABS: HEMATOCRIT. 25.2 % (36.0-48.0); HEMOGLOBIN. 7.8 g/dL (12.0-16.0); MEAN CORPUSCULAR HEMOGLOBIN 22.8 pg (28.0-32.0); MEAN CORPUSCULAR VOLUME 73.6 fL (81.0-99.0); MEAN PLATELET VOLUME 7.8 fl (7.4-10.4); PLATELET 406 x1000/uL (130-400); RED BLOOD CELL COUNT 3.42 mill/uL (4.2-5.4); RED CELL DISTRIBUTION WIDTH 29.3 % (11.6-14.6)
[2020-07-20] MEDS: BLOOD SUGAR DIAGNOSTIC STRIP TEST SCH ×4 (07:44→21:26)
[2020-07-20 08:00] VITALS: BP 123/51
[2020-07-20] MEDS: KETOROLAC 15MG/ML VIAL IV PRN ×3 (08:40→22:26)
[2020-07-20] MEDS: ENOXAPARIN 40MG/0.4ML SYR SUBCUT SCH (08:40)
[2020-07-20] MEDS: INSULIN LISPRO 100 UNITS/ML SUBCUT SCH ×4 (08:43→21:00)
[2020-07-20 12:00] VITALS: BP 147/57
[2020-07-20] MEDS: HYDROCODONE/APAP 7.5/325MG 1 TAB TABLET PO PRN ×2 (12:23→19:04)
[2020-07-20 14:26] LABS: PLATELET ESTIMATE INCREASED
[2020-07-20] MEDS: FLUCONAZOLE 400MG/200ML BAG 200 ML IV SCH (15:55)
[2020-07-20 16:00] VITALS: BP 117/55
[2020-07-20 20:00] VITALS: BP 139/61
[2020-07-20] MEDS: DEXT 5%/0.45% NACL 1000ML 1,000 ML IV SCH (22:26)
[2020-07-21] VITALS: BP 121/59
[2020-07-21] MEDS: MEROPENEM 1,000 MG in SODIUM CHLORIDE 0.9% 100 ML IV SCH ×3 (03:03→18:16)
[2020-07-21] MEDS: HYDROCODONE/APAP 7.5/325MG 1 TAB TABLET PO PRN (03:09)
[2020-07-21 04:00] VITALS: BP 118/58
[2020-07-21] MEDS: BLOOD SUGAR DIAGNOSTIC STRIP TEST SCH ×4 (06:54→20:31)
[2020-07-21] MEDS: INSULIN LISPRO 100 UNITS/ML SUBCUT SCH ×4 (07:57→20:37)
[2020-07-21 08:00] VITALS: BP 118/68
[2020-07-21] MEDS: ENOXAPARIN 40MG/0.4ML SYR SUBCUT SCH (08:24)
[2020-07-21] MEDS: KETOROLAC 15MG/ML VIAL IV PRN ×2 (10:10→20:23)
[2020-07-21] MEDS ORDERED: POTASSIUM CHLORIDE INJ 40 MEQ in DEXT 5% WATER 250 ML IV ONE (11:15)
[2020-07-21 12:30] VITALS: BP 196/94
[2020-07-21] MEDS: DEXT 5%/0.45% NACL 1000ML 1,000 ML IV SCH (14:24)
[2020-07-21] MEDS ORDERED: POTASSIUM PHOS,M-BASIC-D-BASIC 30 MMOL in DEXT 5% WATER 500 ML IV SCH (15:00)
[2020-07-21] MEDS: ACETAMINOPHEN 325MG TABLET PO PRN (15:24)
[2020-07-21 16:10] VITALS: BP 130/60
[2020-07-21] MEDS: FLUCONAZOLE 400MG/200ML BAG 200 ML IV SCH (18:00)
[2020-07-21] MEDS: POTASSIUM CHLORIDE INJ 40 MEQ in DEXT 5% WATER 250 ML IV SCH (18:14)
[2020-07-21 20:00] VITALS: BP 126/63
[2020-07-21] MEDS: ZOLPIDEM TARTRATE 5MG TABLET PO PRN (20:23)
[2020-07-22] VITALS: BP 140/60
[2020-07-22] MEDS: MEROPENEM 1,000 MG in SODIUM CHLORIDE 0.9% 100 ML IV SCH ×2 (02:43→09:39)
[2020-07-22] MEDS: POTASSIUM CHLORIDE INJ 40 MEQ in DEXT 5% WATER 250 ML IV SCH ×2 (02:44→15:15)
[2020-07-22] MEDS: ONDANSETRON HCL 4MG/2ML INJ IV PRN ×2 (02:46→11:53)
[2020-07-22] MEDS: KETOROLAC 15MG/ML VIAL IV PRN ×4 (02:47→22:48)
[2020-07-22 04:00] VITALS: BP 112/47
[2020-07-22 06:06] LABS: CHLORIDE 99 mEq/L (98-107)
[2020-07-22 06:28] LABS: HEMATOCRIT. 25.1 % (36.0-48.0); HEMOGLOBIN. 8.2 g/dL (12.0-16.0); MEAN CORPUSCULAR HEMOGLOBIN 24.1 pg (28.0-32.0); MEAN CORPUSCULAR VOLUME 73.8 fL (81.0-99.0); MEAN PLATELET VOLUME 7.4 fl (7.4-10.4); PLATELET 576 x1000/uL (130-400); RED BLOOD CELL COUNT 3.39 mill/uL (4.2-5.4); RED CELL DISTRIBUTION WIDTH 30.1 % (11.6-14.6)
[2020-07-22] MEDS: BLOOD SUGAR DIAGNOSTIC STRIP TEST SCH ×4 (06:37→21:00)
[2020-07-22] MEDS: INSULIN LISPRO 100 UNITS/ML SUBCUT SCH ×5 (07:50→21:00)
[2020-07-22 07:57] VITALS: BP 105/54
[2020-07-22] MEDS: ENOXAPARIN 40MG/0.4ML SYR SUBCUT SCH (08:15)
[2020-07-22] MEDS ORDERED: DIATR MEGLU/DIATRIZOATE SOLN 30ML PO NR (11:00)
[2020-07-22 11:59] VITALS: BP 112/56
[2020-07-22] MEDS: HYDROCODONE/APAP 7.5/325MG 1 TAB TABLET PO PRN (14:28)
[2020-07-22] MEDS ORDERED: [UNRECOGNIZED DRUG - REMARK] XX SCH (14:30)
[2020-07-22 16:08] VITALS: BP 130/64
[2020-07-22 19:22] LABS: PLATELET ESTIMATE INCREASED
[2020-07-22 20:00] VITALS: BP 132/66
[2020-07-22] MEDS: FLUCONAZOLE 400MG/200ML BAG 200 ML IV SCH (22:31)
[2020-07-22] MEDS: DEXT 5%/0.45% NACL 1000ML 1,000 ML IV SCH (22:32)
[2020-07-22] MEDS: ZOLPIDEM TARTRATE 5MG TABLET PO PRN (22:48)
[2020-07-23] VITALS (32 sets, daily range): BP systolic 108–144; BP diastolic 56–79
[2020-07-23] MEDS: POTASSIUM CHLORIDE INJ 40 MEQ in DEXT 5% WATER 250 ML IV SCH (03:40)
[2020-07-23] MEDS: BLOOD SUGAR DIAGNOSTIC STRIP TEST SCH ×4 (06:40→21:21)
[2020-07-23] MEDS: MEROPENEM 1,000 MG in SODIUM CHLORIDE 0.9% 100 ML IV SCH ×4 (06:46→17:54)
[2020-07-23 06:53] LABS: HEMATOCRIT. 24.9 % (36.0-48.0); HEMOGLOBIN. 7.9 g/dL (12.0-16.0); MEAN CORPUSCULAR HEMOGLOBIN 23.2 pg (28.0-32.0); MEAN CORPUSCULAR VOLUME 73.4 fL (81.0-99.0); MEAN PLATELET VOLUME 7.3 fl (7.4-10.4); PLATELET 595 x1000/uL (130-400); RED CELL DISTRIBUTION WIDTH 30.8 % (11.6-14.6)
[2020-07-23 07:19] LABS: CHLORIDE 98 mEq/L (98-107)
[2020-07-23] MEDS: INSULIN LISPRO 100 UNITS/ML SUBCUT SCH ×4 (07:50→21:22)
[2020-07-23 07:58] LABS: PHOSPHORUS 2.8 mg/dL (2.5-4.9)
[2020-07-23] MEDS: ENOXAPARIN 40MG/0.4ML SYR SUBCUT SCH (09:00)
[2020-07-23] MEDS ORDERED: POLYMYXIN B SULFATE 500000 UNITS/VIAL ONE (11:08)
[2020-07-23] MEDS ORDERED: BUPIVACAINE HCL 0.5% (5MG/ML) 50ML ONE (11:09)
[2020-07-23] MEDS ORDERED: PROPOFOL 200MG/20ML VIAL IV ONE (11:58)
[2020-07-23] MEDS ORDERED: FENTANYL CITRATE/PF 50MCG/ML 2ML VIAL ONE ×2 (11:58→14:54)
[2020-07-23] MEDS ORDERED: ROCURONIUM BROMIDE 10MG/ML VIAL 5ML IV ONE (11:58)
[2020-07-23] MEDS ORDERED: NEOSTIGMINE METHYLSULFATE 1MG/ML 10 ML VIAL ONE (11:58)
[2020-07-23] MEDS ORDERED: MIDAZOLAM HCL 2 MG/2 ML VIAL ONE (11:58)
[2020-07-23] MEDS ORDERED: GLYCOPYRROLATE 0.2 MG/ML 2ML VIAL ONE (11:58)
[2020-07-23] MEDS ORDERED: DEXAMETHASONE 4MG/ML 1ML VIAL ONE (11:59)
[2020-07-23] MEDS ORDERED: ONDANSETRON HCL 4MG/2ML INJ ONE (12:49)
[2020-07-23] MEDS ORDERED: HYDROMORPHONE HCL/PF 2MG/ML (OR) ONE (12:49)
[2020-07-23 13:35] LABS: PLATELET ESTIMATE INCREASED
[2020-07-23] MEDS ORDERED: LABETALOL HCL 5MG/ML VIAL 20ML IV ONE (13:56)
[2020-07-23] MEDS ORDERED: MEPERIDINE HCL/PF 25MG/ML CPJ IV PRN (14:45)
[2020-07-23] MEDS ORDERED: HYDROMORPHONE HCL/PF 2MG/ML CPJ IV PRN (14:45)
[2020-07-23] MEDS ORDERED: ONDANSETRON HCL 4MG/2ML INJ IV PRN (14:45)
[2020-07-23] MEDS ORDERED: LABETALOL 5MG/ML SYR 20 MG/4 ML SYRINGE IV PRN (14:45)
[2020-07-23] MEDS: FLUCONAZOLE 400MG/200ML BAG 200 ML IV SCH (16:00)
[2020-07-23] MEDS: METOPROLOL TARTRATE 5MG/5ML VIAL IV PRN (16:54)
[2020-07-23] MEDS: KETOROLAC 15MG/ML VIAL IV PRN (16:55)
[2020-07-23] MEDS ORDERED: AMIKACIN SULFATE 400 MG in SODIUM CHLORIDE 0.9% 100 ML IV NR (19:00)
[2020-07-23] MEDS ORDERED: POTASSIUM CHLORIDE INJ 40 MEQ in DEXT 5% WATER 500 ML IV NR ×2 (20:00→20:30)
[2020-07-23] MEDS: DEXT 5%/0.45% NACL 1000ML 1,000 ML IV SCH (22:09)
[2020-07-24] VITALS (86 sets, daily range): BP systolic 85–130; BP diastolic 33–78
[2020-07-24] MEDS: MEROPENEM 1,000 MG in SODIUM CHLORIDE 0.9% 100 ML IV SCH ×3 (01:16→16:51)
[2020-07-24] MEDS ORDERED: IPRATROPIUM/ALBUTEROL 0.5-3(2.5)MG/3ML NEB HHN PRN (03:00)
[2020-07-24] MEDS: KETOROLAC 15MG/ML VIAL IV PRN ×4 (03:15→22:21)
[2020-07-24 05:55] LABS: CHLORIDE 96 mEq/L (98-107)
[2020-07-24 06:00] LABS: HEMATOCRIT. 25.1 % (36.0-48.0); MEAN CORPUSCULAR HEMOGLOBIN 23.3 pg (28.0-32.0); MEAN CORPUSCULAR VOLUME 73.6 fL (81.0-99.0); MEAN PLATELET VOLUME 7.4 fl (7.4-10.4); PLATELET 593 x1000/uL (130-400); RED BLOOD CELL COUNT 3.42 mill/uL (4.2-5.4); RED CELL DISTRIBUTION WIDTH 30.4 % (11.6-14.6)
[2020-07-24 06:03] LABS: PHOSPHORUS 2.5 mg/dL (2.5-4.9)
[2020-07-24] MEDS: BLOOD SUGAR DIAGNOSTIC STRIP TEST SCH ×4 (06:11→20:30)
[2020-07-24] MEDS: INSULIN LISPRO 100 UNITS/ML SUBCUT SCH ×4 (06:25→20:33)
[2020-07-24] MEDS: ENOXAPARIN 40MG/0.4ML SYR SUBCUT SCH (09:36)
[2020-07-24] MEDS ORDERED: DEXTROSE 50% WATER 50ML SYRINGE IV PRN (10:15)
[2020-07-24] MEDS: HYDROMORPHONE HCL/PF 2MG/ML CPJ IV PRN (12:30)
[2020-07-24] MEDS: PANTOPRAZOLE SODIUM 40 MG/VIAL IV SCH (12:31)
[2020-07-24] MEDS: DEXT 5%/0.45% NACL KCL 30MEQ/L 1,000 ML IV SCH ×2 (12:31→20:30)
[2020-07-24 13:45] LABS: PLATELET ESTIMATE INCREASED
[2020-07-24] MEDS: FLUCONAZOLE 400MG/200ML BAG 200 ML IV SCH (19:24)
[2020-07-25] VITALS (105 sets, daily range): BP systolic 91–139; BP diastolic 41–90
[2020-07-25] MEDS: MEROPENEM 1,000 MG in SODIUM CHLORIDE 0.9% 100 ML IV SCH ×3 (01:43→17:54)
[2020-07-25] MEDS: KETOROLAC 15MG/ML VIAL IV PRN (03:42)
[2020-07-25] MEDS: HYDROMORPHONE HCL/PF 2MG/ML CPJ IV PRN ×3 (03:57→15:06)
[2020-07-25 05:28] LABS: CHLORIDE 100 mEq/L (98-107); HEMATOCRIT. 21.9 % (36.0-48.0); MEAN CORPUSCULAR VOLUME 75.8 fL (81.0-99.0); MEAN PLATELET VOLUME 7.1 fl (7.4-10.4); PLATELET 539 x1000/uL (130-400); RED CELL DISTRIBUTION WIDTH 29.4 % (11.6-14.6)
[2020-07-25 06:29] LABS: HEMOGLOBIN. 6.7 g/dL (12.0-16.0)
[2020-07-25] MEDS: BLOOD SUGAR DIAGNOSTIC STRIP TEST SCH ×4 (06:30→21:00)
[2020-07-25] MEDS: ENOXAPARIN 40MG/0.4ML SYR SUBCUT SCH (07:29)
[2020-07-25] MEDS: PANTOPRAZOLE SODIUM 40 MG/VIAL IV SCH (09:00)
[2020-07-25] MEDS: DEXT 5%/0.45% NACL KCL 30MEQ/L 1,000 ML IV SCH (09:01)
[2020-07-25] MEDS: INSULIN LISPRO 100 UNITS/ML SUBCUT SCH ×4 (09:01→21:00)
[2020-07-25 10:56] LABS: PLATELET ESTIMATE INCREASED
[2020-07-25] MEDS: DEXT 5%/0.45% NACL 1000ML 1,000 ML IV SCH (12:42)
[2020-07-25 16:21] LABS: HEMATOCRIT 28.3 % (36.0-48.0); HEMOGLOBIN 9.1 g/dL (12.0-16.0)
[2020-07-25 16:34] LABS: INR 1.2; PROTHROMBIN TIME 12.4 sec (9.6-11.0)
[2020-07-25] MEDS: FLUCONAZOLE 400MG/200ML BAG 200 ML IV SCH (17:36)
[2020-07-26] VITALS (80 sets, daily range): BP systolic 106–141; BP diastolic 40–98
[2020-07-26] MEDS: DEXT 5%/0.45% NACL 1000ML 1,000 ML IV SCH ×3 (01:08→17:59)
[2020-07-26] MEDS: MEROPENEM 1,000 MG in SODIUM CHLORIDE 0.9% 100 ML IV SCH ×3 (01:52→17:58)
[2020-07-26] MEDS: MORPHINE SULFATE 2 MG/ML CPJ (NOT FOR IM USE) IV PRN ×4 (02:33→23:31)
[2020-07-26 05:23] LABS: HEMOGLOBIN. 11.4 g/dL (12.0-16.0); MEAN CORPUSCULAR HEMOGLOBIN 25.6 pg (28.0-32.0); MEAN CORPUSCULAR VOLUME 78.6 fL (81.0-99.0); MEAN PLATELET VOLUME 7.5 fl (7.4-10.4); PLATELET 177 x1000/uL (130-400); RED BLOOD CELL COUNT 4.46 mill/uL (4.2-5.4); RED CELL DISTRIBUTION WIDTH 25.1 % (11.6-14.6)
[2020-07-26 05:32] LABS: CHLORIDE 99 mEq/L (98-107)
[2020-07-26 05:39] LABS: PHOSPHORUS 1.6 mg/dL (2.5-4.9)
[2020-07-26] MEDS: BLOOD SUGAR DIAGNOSTIC STRIP TEST SCH ×4 (07:05→21:00)
[2020-07-26] MEDS: PANTOPRAZOLE SODIUM 40 MG/VIAL IV SCH (08:25)
[2020-07-26] MEDS: INSULIN LISPRO 100 UNITS/ML SUBCUT SCH ×4 (08:35→23:30)
[2020-07-26] MEDS ORDERED: KCL 20MEQ/100ML PREMIX 100 ML IV NR ×2 (14:30→20:00)
[2020-07-26 14:34] LABS: PLATELET ESTIMATE NORMAL
[2020-07-26] MEDS ORDERED: POTASSIUM PHOS,M-BASIC-D-BASIC 30 MMOL in DEXT 5% WATER 500 ML IV NR (15:00)
[2020-07-26] MEDS: FLUCONAZOLE 400MG/200ML BAG 200 ML IV SCH (16:36)
[2020-07-26] MEDS ORDERED: AMIKACIN SULFATE 400 MG in SODIUM CHLORIDE 0.9% 100 ML IV ONE (18:00)
[2020-07-27] VITALS (36 sets, daily range): BP systolic 119–146; BP diastolic 53–101
[2020-07-27] MEDS: MEROPENEM 1,000 MG in SODIUM CHLORIDE 0.9% 100 ML IV SCH ×3 (02:08→20:44)
[2020-07-27] MEDS: DEXT 5%/0.45% NACL 1000ML 1,000 ML IV SCH ×2 (03:00→14:31)
[2020-07-27] MEDS: MORPHINE SULFATE 2 MG/ML CPJ (NOT FOR IM USE) IV PRN (03:47)
[2020-07-27 04:38] LABS: HEMATOCRIT. 35.6 % (36.0-48.0); HEMOGLOBIN. 11.5 g/dL (12.0-16.0); MEAN CORPUSCULAR HEMOGLOBIN 25.3 pg (28.0-32.0); MEAN CORPUSCULAR VOLUME 78.7 fL (81.0-99.0); MEAN PLATELET VOLUME 6.9 fl (7.4-10.4); PLATELET 455 x1000/uL (130-400); RED BLOOD CELL COUNT 4.53 mill/uL (4.2-5.4); RED CELL DISTRIBUTION WIDTH 26.1 % (11.6-14.6)
[2020-07-27 04:46] LABS: CHLORIDE 100 mEq/L (98-107)
[2020-07-27] MEDS: BLOOD SUGAR DIAGNOSTIC STRIP TEST SCH ×4 (06:18→21:02)
[2020-07-27] MEDS: INSULIN LISPRO 100 UNITS/ML SUBCUT SCH ×4 (06:19→21:13)
[2020-07-27] MEDS: PANTOPRAZOLE SODIUM 40 MG/VIAL IV SCH (08:45)
[2020-07-27] MEDS: KETOROLAC 15MG/ML VIAL IV PRN ×3 (10:41→23:06)
[2020-07-27 12:17] LABS: PLATELET ESTIMATE SLIGHTLY INCREASED
[2020-07-27] MEDS ORDERED: POTASSIUM PHOS,M-BASIC-D-BASIC 30 MMOL in DEXT 5% WATER 500 ML IV NR (14:00)
[2020-07-27] MEDS: KCL 20MEQ/100ML PREMIX 100 ML IV SCH (14:31)
[2020-07-27] MEDS: FLUCONAZOLE 400MG/200ML BAG 200 ML IV SCH (18:16)
[2020-07-27] MEDS: ONDANSETRON HCL 4MG/2ML INJ IV PRN (23:07)
[2020-07-28] VITALS (12 sets, daily range): BP systolic 129–145; BP diastolic 55–71
[2020-07-28] MEDS: DEXT 5%/0.45% NACL 1000ML 1,000 ML IV SCH ×3 (00:53→21:55)
[2020-07-28] MEDS: KCL 20MEQ/100ML PREMIX 100 ML IV SCH ×3 (02:09→17:14)
[2020-07-28] MEDS: MEROPENEM 1,000 MG in SODIUM CHLORIDE 0.9% 100 ML IV SCH ×3 (02:15→18:10)
[2020-07-28] MEDS: KETOROLAC 15MG/ML VIAL IV PRN ×3 (03:42→17:14)
[2020-07-28 06:24] LABS: HEMOGLOBIN. 11.1 g/dL (12.0-16.0); MEAN CORPUSCULAR HEMOGLOBIN 26.4 pg (28.0-32.0); MEAN CORPUSCULAR VOLUME 80.7 fL (81.0-99.0); MEAN PLATELET VOLUME 6.9 fl (7.4-10.4); PLATELET 404 x1000/uL (130-400); RED BLOOD CELL COUNT 4.21 mill/uL (4.2-5.4)
[2020-07-28 07:15] LABS: CHLORIDE 103 mEq/L (98-107)
[2020-07-28 07:19] LABS: PHOSPHORUS 2.3 mg/dL (2.5-4.9)
[2020-07-28] MEDS: BLOOD SUGAR DIAGNOSTIC STRIP TEST SCH ×4 (07:47→21:58)
[2020-07-28] MEDS: INSULIN LISPRO 100 UNITS/ML SUBCUT SCH ×4 (08:00→21:58)
[2020-07-28] MEDS: PANTOPRAZOLE SODIUM 40 MG/VIAL IV SCH (08:47)
[2020-07-28] MEDS ORDERED: POTASSIUM PHOS,M-BASIC-D-BASIC 30 MMOL in DEXT 5% WATER 500 ML IV SCH (14:00)
[2020-07-28] MEDS: FLUCONAZOLE 400MG/200ML BAG 200 ML IV SCH (15:15)
[2020-07-28 16:20] LABS: PLATELET ESTIMATE INCREASED
[2020-07-28] MEDS: MORPHINE SULFATE 2 MG/ML CPJ (NOT FOR IM USE) IV PRN (21:57)
[2020-07-29] VITALS (10 sets, daily range): BP systolic 120–146; BP diastolic 55–82
[2020-07-29] MEDS: DEXT 5%/0.45% NACL 1000ML 1,000 ML IV SCH ×2 (01:34→17:27)
[2020-07-29] MEDS: MEROPENEM 1,000 MG in SODIUM CHLORIDE 0.9% 100 ML IV SCH ×3 (02:22→19:59)
[2020-07-29] MEDS: KETOROLAC 15MG/ML VIAL IV PRN ×2 (05:05→12:16)
[2020-07-29] MEDS: BLOOD SUGAR DIAGNOSTIC STRIP TEST SCH ×4 (07:53→21:00)
[2020-07-29] MEDS: INSULIN LISPRO 100 UNITS/ML SUBCUT SCH ×4 (08:11→21:00)
[2020-07-29 08:51] LABS: HEMATOCRIT. 31.2 % (36.0-48.0); HEMOGLOBIN. 10.5 g/dL (12.0-16.0); MEAN CORPUSCULAR HEMOGLOBIN 26.5 pg (28.0-32.0); MEAN CORPUSCULAR VOLUME 78.7 fL (81.0-99.0); MEAN PLATELET VOLUME 6.9 fl (7.4-10.4); PLATELET 409 x1000/uL (130-400); RED BLOOD CELL COUNT 3.97 mill/uL (4.2-5.4); RED CELL DISTRIBUTION WIDTH 26.8 % (11.6-14.6)
[2020-07-29] MEDS: PANTOPRAZOLE SODIUM 40 MG/VIAL IV SCH (08:57)
[2020-07-29] MEDS: KCL 20MEQ/100ML PREMIX 100 ML IV SCH ×2 (08:57→17:27)
[2020-07-29 08:58] LABS: CHLORIDE 101 mEq/L (98-107)
[2020-07-29 09:03] LABS: PHOSPHORUS 2.1 mg/dL (2.5-4.9)
[2020-07-29] MEDS ORDERED: KCL 20MEQ/100ML PREMIX 100 ML IV ONE (11:00)
[2020-07-29 12:27] LABS: PHOSPHORUS 2.2 mg/dL (2.5-4.9)
[2020-07-29] MEDS ORDERED: POTASSIUM PHOS,M-BASIC-D-BASIC 30 MMOL in DEXT 5% WATER 500 ML IV NR (12:30)
[2020-07-29 15:18] LABS: PLATELET ESTIMATE NORMAL
[2020-07-29] MEDS: FLUCONAZOLE 400MG/200ML BAG 200 ML IV SCH (16:00)
[2020-07-29] MEDS: MORPHINE SULFATE 2 MG/ML CPJ (NOT FOR IM USE) IV PRN (19:26)
[2020-07-30] VITALS (15 sets, daily range): BP systolic 52–138; BP diastolic 5–64
[2020-07-30] MEDS: MEROPENEM 1,000 MG in SODIUM CHLORIDE 0.9% 100 ML IV SCH ×3 (02:09→19:54)
[2020-07-30] MEDS: DEXT 5%/0.45% NACL 1000ML 1,000 ML IV SCH ×3 (02:10→23:39)
[2020-07-30] MEDS: KETOROLAC 15MG/ML VIAL IV PRN ×3 (02:46→19:53)
[2020-07-30] MEDS: MORPHINE SULFATE 2 MG/ML CPJ (NOT FOR IM USE) IV PRN ×2 (06:02→23:38)
[2020-07-30] MEDS: BLOOD SUGAR DIAGNOSTIC STRIP TEST SCH ×4 (07:30→20:16)
[2020-07-30] MEDS: INSULIN LISPRO 100 UNITS/ML SUBCUT SCH ×4 (08:00→20:16)
[2020-07-30 08:55] LABS: HEMATOCRIT. 22.9 % (36.0-48.0); HEMOGLOBIN. 7.5 g/dL (12.0-16.0); MEAN CORPUSCULAR HEMOGLOBIN 26.4 pg (28.0-32.0); MEAN CORPUSCULAR VOLUME 80.6 fL (81.0-99.0); MEAN PLATELET VOLUME 6.9 fl (7.4-10.4); PLATELET 283 x1000/uL (130-400); RED BLOOD CELL COUNT 2.84 mill/uL (4.2-5.4); RED CELL DISTRIBUTION WIDTH 26.1 % (11.6-14.6)
[2020-07-30] MEDS: ENOXAPARIN 40MG/0.4ML SYR SUBCUT SCH (09:00)
[2020-07-30 09:04] LABS: CHLORIDE 110 mEq/L (98-107)
[2020-07-30 09:09] LABS: PHOSPHORUS 1.6 mg/dL (2.5-4.9)
[2020-07-30] MEDS ORDERED: MAGNESIUM 2 G PREMIX 50 ML IV SCH (11:00)
[2020-07-30] MEDS ORDERED: POTASSIUM PHOS,M-BASIC-D-BASIC 30 MMOL in DEXT 5% WATER 500 ML IV SCH (11:00)
[2020-07-30] MEDS: KCL 20MEQ/100ML PREMIX 100 ML IV SCH ×2 (11:38→19:55)
[2020-07-30] MEDS: PANTOPRAZOLE SODIUM 40 MG/VIAL IV SCH (11:39)
[2020-07-30] MEDS: ONDANSETRON HCL 4MG/2ML INJ IV PRN ×2 (14:43→23:51)
[2020-07-30] MEDS: FLUCONAZOLE 400MG/200ML BAG 200 ML IV SCH (16:00)
[2020-07-30 17:03] LABS: PLATELET ESTIMATE NORMAL
[2020-07-31] VITALS (13 sets, daily range): BP systolic 115–140; BP diastolic 47–78
[2020-07-31] MEDS ORDERED: POTASSIUM CHLORIDE INJ 40 MEQ in DEXT 5% WATER 250 ML IV PRN (01:00)
[2020-07-31] MEDS: KCL 20MEQ/100ML PREMIX 100 ML IV SCH ×2 (03:20→08:46)
[2020-07-31] MEDS: MEROPENEM 1,000 MG in SODIUM CHLORIDE 0.9% 100 ML IV SCH ×3 (03:20→19:33)
[2020-07-31 06:37] LABS: HEMATOCRIT. 33.1 % (36.0-48.0); HEMOGLOBIN. 10.8 g/dL (12.0-16.0); MEAN PLATELET VOLUME 6.9 fl (7.4-10.4); PLATELET 425 x1000/uL (130-400); RED BLOOD CELL COUNT 4.14 mill/uL (4.2-5.4); RED CELL DISTRIBUTION WIDTH 26.3 % (11.6-14.6)
[2020-07-31 06:51] LABS: CHLORIDE 100 mEq/L (98-107)
[2020-07-31 06:59] LABS: PHOSPHORUS 2.3 mg/dL (2.5-4.9)
[2020-07-31] MEDS: ENOXAPARIN 40MG/0.4ML SYR SUBCUT SCH (07:44)
[2020-07-31] MEDS: BLOOD SUGAR DIAGNOSTIC STRIP TEST SCH ×4 (07:44→21:00)
[2020-07-31] MEDS: PANTOPRAZOLE SODIUM 40 MG/VIAL IV SCH (07:55)
[2020-07-31] MEDS: INSULIN LISPRO 100 UNITS/ML SUBCUT SCH ×4 (08:00→23:14)
[2020-07-31] MEDS: ONDANSETRON HCL 4MG/2ML INJ IV PRN ×2 (08:44→16:30)
[2020-07-31] MEDS: KETOROLAC 15MG/ML VIAL IV PRN ×2 (09:24→16:30)
[2020-07-31 12:30] LABS: PLATELET ESTIMATE INCREASED
[2020-07-31] MEDS: POTASSIUM PHOS,M-BASIC-D-BASIC 20 MMOL in DEXT 5% WATER 243.3333 ML IV SCH ×2 (13:12→19:33)
[2020-07-31] MEDS: FERROUS SULFATE 300MG/5ML UDC PO SCH ×2 (13:29→19:32)
[2020-07-31] MEDS: ACETAMINOPHEN 325MG TABLET PO PRN (14:02)
[2020-07-31] MEDS: FLUCONAZOLE 400MG/200ML BAG 200 ML IV SCH (16:32)
[2020-07-31] MEDS: MORPHINE SULFATE 2 MG/ML CPJ (NOT FOR IM USE) IV PRN (23:07)
[2020-08-01] VITALS (12 sets, daily range): BP systolic 109–120; BP diastolic 50–70
[2020-08-01] MEDS: MEROPENEM 1,000 MG in SODIUM CHLORIDE 0.9% 100 ML IV SCH ×3 (01:17→17:54)
[2020-08-01] MEDS: KCL 20MEQ/100ML PREMIX 100 ML IV SCH ×2 (01:17→10:12)
[2020-08-01] MEDS: DEXT 5%/0.45% NACL 1000ML 1,000 ML IV SCH ×3 (05:33→15:40)
[2020-08-01] MEDS: KETOROLAC 15MG/ML VIAL IV PRN ×2 (06:36→13:12)
[2020-08-01] MEDS: BLOOD SUGAR DIAGNOSTIC STRIP TEST SCH ×4 (07:30→21:00)
[2020-08-01 07:47] LABS: HEMATOCRIT. 31.9 % (36.0-48.0); HEMOGLOBIN. 10.6 g/dL (12.0-16.0); MEAN CORPUSCULAR HEMOGLOBIN 26.6 pg (28.0-32.0); MEAN CORPUSCULAR VOLUME 80.5 fL (81.0-99.0); MEAN PLATELET VOLUME 7.2 fl (7.4-10.4); PLATELET 400 x1000/uL (130-400); RED BLOOD CELL COUNT 3.96 mill/uL (4.2-5.4); RED CELL DISTRIBUTION WIDTH 25.9 % (11.6-14.6)
[2020-08-01 07:48] LABS: CHLORIDE 102 mEq/L (98-107)
[2020-08-01 07:53] LABS: PHOSPHORUS 1.9 mg/dL (2.5-4.9)
[2020-08-01] MEDS: PANTOPRAZOLE SODIUM 40 MG/VIAL IV SCH (08:51)
[2020-08-01] MEDS: ENOXAPARIN 40MG/0.4ML SYR SUBCUT SCH (08:51)
[2020-08-01] MEDS: POTASSIUM PHOS,M-BASIC-D-BASIC 20 MMOL in DEXT 5% WATER 243.3333 ML IV SCH ×2 (08:51→15:51)
[2020-08-01] MEDS: INSULIN LISPRO 100 UNITS/ML SUBCUT SCH ×4 (08:54→23:47)
[2020-08-01] MEDS: FERROUS SULFATE 325MG TABLET PO SCH ×3 (08:54→17:54)
[2020-08-01] MEDS: FLUCONAZOLE 400MG/200ML BAG 200 ML IV SCH (15:49)
[2020-08-01] MEDS ORDERED: VALS320T16 MT (17:39)
[2020-08-01] MEDS ORDERED: FOLI1TAB63 MT (17:41)
[2020-08-01] MEDS ORDERED: INSLIS SUBCUT (17:43)
[2020-08-01] MEDS ORDERED: METF-416 MT (17:46)
[2020-08-01] MEDS ORDERED: EMPA10TA MT (17:46)
[2020-08-01] MEDS: ACETAMINOPHEN 325MG TABLET PO PRN (21:25)
[2020-08-01 21:50] LABS: PLATELET ESTIMATE NORMAL
[2020-08-01] MEDS: MORPHINE SULFATE 2 MG/ML CPJ (NOT FOR IM USE) IV PRN (23:37)
[2020-08-02] VITALS (12 sets, daily range): BP systolic 107–140; BP diastolic 34–67
[2020-08-02] MEDS: DEXT 5%/0.45% NACL 1000ML 1,000 ML IV SCH ×3 (02:10→20:33)
[2020-08-02] MEDS: MEROPENEM 1,000 MG in SODIUM CHLORIDE 0.9% 100 ML IV SCH ×3 (02:10→18:40)
[2020-08-02] MEDS: KETOROLAC 15MG/ML VIAL IV PRN ×3 (05:40→18:40)
[2020-08-02 06:40] LABS: HEMATOCRIT. 31.2 % (36.0-48.0); HEMOGLOBIN. 10.3 g/dL (12.0-16.0); MEAN CORPUSCULAR HEMOGLOBIN 26.3 pg (28.0-32.0); MEAN CORPUSCULAR VOLUME 80.1 fL (81.0-99.0); MEAN PLATELET VOLUME 7.2 fl (7.4-10.4); PLATELET 446 x1000/uL (130-400); RED CELL DISTRIBUTION WIDTH 26.8 % (11.6-14.6)
[2020-08-02 06:41] LABS: CHLORIDE 100 mEq/L (98-107)
[2020-08-02 06:50] LABS: PHOSPHORUS 2.6 mg/dL (2.5-4.9)
[2020-08-02] MEDS: BLOOD SUGAR DIAGNOSTIC STRIP TEST SCH ×4 (07:49→20:32)
[2020-08-02] MEDS: INSULIN LISPRO 100 UNITS/ML SUBCUT SCH ×4 (07:49→20:32)
[2020-08-02] MEDS: FERROUS SULFATE 325MG TABLET PO SCH ×3 (08:04→18:40)
[2020-08-02] MEDS: ENOXAPARIN 40MG/0.4ML SYR SUBCUT SCH (08:04)
[2020-08-02] MEDS: PANTOPRAZOLE SODIUM 40 MG/VIAL IV SCH (08:04)
[2020-08-02] MEDS: POTASSIUM PHOS,M-BASIC-D-BASIC 20 MMOL in DEXT 5% WATER 243.3333 ML IV SCH ×2 (09:01→17:07)
[2020-08-02] MEDS: FLUCONAZOLE 400MG/200ML BAG 200 ML IV SCH (17:08)
[2020-08-02 21:43] LABS: PLATELET ESTIMATE INCREASED
[2020-08-02] MEDS: MORPHINE SULFATE 2 MG/ML CPJ (NOT FOR IM USE) IV PRN (23:50)
[2020-08-03] VITALS (11 sets, daily range): BP systolic 113–145; BP diastolic 54–69
[2020-08-03] MEDS: MEROPENEM 1,000 MG in SODIUM CHLORIDE 0.9% 100 ML IV SCH ×3 (02:08→17:43)
[2020-08-03] MEDS: DEXT 5%/0.45% NACL 1000ML 1,000 ML IV SCH ×2 (06:45→16:46)
[2020-08-03] MEDS: KETOROLAC 15MG/ML VIAL IV PRN ×3 (07:23→18:03)
[2020-08-03] MEDS: BLOOD SUGAR DIAGNOSTIC STRIP TEST SCH ×4 (07:59→20:27)
[2020-08-03] MEDS: FERROUS SULFATE 325MG TABLET PO SCH ×3 (08:13→17:42)
[2020-08-03] MEDS: PANTOPRAZOLE SODIUM 40 MG/VIAL IV SCH (08:13)
[2020-08-03] MEDS: ENOXAPARIN 40MG/0.4ML SYR SUBCUT SCH ×2 (08:13→08:28)
[2020-08-03] MEDS: INSULIN LISPRO 100 UNITS/ML SUBCUT SCH ×4 (08:14→20:26)
[2020-08-03] MEDS: FLUCONAZOLE 400MG/200ML BAG 200 ML IV SCH (16:14)
[2020-08-03] MEDS ORDERED: BISACODYL 10MG SUPP PR PRN (17:15)
[2020-08-03] MEDS: ACETAMINOPHEN 325MG TABLET PO PRN (23:45)
[2020-08-03] MEDS: MORPHINE SULFATE 2 MG/ML CPJ (NOT FOR IM USE) IV PRN (23:47)
[2020-08-04] VITALS (12 sets, daily range): BP systolic 115–171; BP diastolic 56–86
[2020-08-04] MEDS: MEROPENEM 1,000 MG in SODIUM CHLORIDE 0.9% 100 ML IV SCH ×3 (01:57→17:47)
[2020-08-04] MEDS: DEXT 5%/0.45% NACL 1000ML 1,000 ML IV SCH ×3 (04:51→21:57)
[2020-08-04 06:02] LABS: HEMATOCRIT. 26.8 % (36.0-48.0); HEMOGLOBIN. 8.8 g/dL (12.0-16.0); MEAN CORPUSCULAR HEMOGLOBIN 26.6 pg (28.0-32.0); MEAN CORPUSCULAR VOLUME 81.3 fL (81.0-99.0); MEAN PLATELET VOLUME 7.2 fl (7.4-10.4); PLATELET 351 x1000/uL (130-400); RED BLOOD CELL COUNT 3.29 mill/uL (4.2-5.4); RED CELL DISTRIBUTION WIDTH 26.3 % (11.6-14.6)
[2020-08-04] MEDS: BLOOD SUGAR DIAGNOSTIC STRIP TEST SCH ×4 (07:30→20:17)
[2020-08-04 07:52] LABS: CHLORIDE 108 mEq/L (98-107)
[2020-08-04] MEDS: INSULIN LISPRO 100 UNITS/ML SUBCUT SCH ×4 (08:00→20:17)
[2020-08-04 08:01] LABS: PHOSPHORUS 1.7 mg/dL (2.5-4.9)
[2020-08-04] MEDS: FERROUS SULFATE 325MG TABLET PO SCH ×3 (08:27→17:47)
[2020-08-04] MEDS: ENOXAPARIN 40MG/0.4ML SYR SUBCUT SCH (08:27)
[2020-08-04] MEDS: BISACODYL 5MG TABLET PO SCH (08:27)
[2020-08-04] MEDS: PANTOPRAZOLE SODIUM 40 MG/VIAL IV SCH (08:27)
[2020-08-04] MEDS: POLYETHYLENE GLYCOL 3350 (17GM) 1 DOSE PACK PO SCH (08:27)
[2020-08-04] MEDS: KETOROLAC 15MG/ML VIAL IV PRN ×2 (08:31→13:47)
[2020-08-04] MEDS ORDERED: MAGNESIUM 2 G PREMIX 50 ML IV NR ×2 (10:30→16:30)
[2020-08-04] MEDS ORDERED: POTASSIUM CHLORIDE INJ 40 MEQ in DEXT 5% WATER 250 ML IV NR (10:30)
[2020-08-04 13:07] LABS: PLATELET ESTIMATE NORMAL
[2020-08-04] MEDS ORDERED: POTASSIUM BICARB/CIT ACID 25 MEQ TABLET.EFF PO SCH (15:00)
[2020-08-04] MEDS ORDERED: MAGNESIUM 4 G PREMIX 100 ML IV NR (15:15)
[2020-08-04] MEDS: POTASSIUM-SODIUM PHOSPHATE POWDER PACKET PO SCH ×3 (15:20→22:00)
[2020-08-04] MEDS: FLUCONAZOLE 400MG/200ML BAG 200 ML IV SCH (15:20)
[2020-08-04] MEDS: ACETAMINOPHEN 325MG TABLET PO PRN (20:17)
[2020-08-04] MEDS: POTASSIUM BICARB/CIT ACID 25 MEQ TABLET.EFF PO SCH ×2 (20:19→21:00)
[2020-08-05] VITALS (7 sets, daily range): BP systolic 107–147; BP diastolic 53–71
[2020-08-05] MEDS: TEMAZEPAM 15MG CAPSULE PO PRN (00:43)
[2020-08-05] MEDS: KETOROLAC 15MG/ML VIAL IV PRN ×3 (00:44→20:40)
[2020-08-05] MEDS: MEROPENEM 1,000 MG in SODIUM CHLORIDE 0.9% 100 ML IV SCH ×3 (02:34→17:01)
[2020-08-05] MEDS: INSULIN LISPRO 100 UNITS/ML SUBCUT SCH ×4 (08:00→21:52)
[2020-08-05] MEDS: POLYETHYLENE GLYCOL 3350 (17GM) 1 DOSE PACK PO SCH (08:07)
[2020-08-05] MEDS: POTASSIUM-SODIUM PHOSPHATE POWDER PACKET PO SCH ×2 (08:07→17:01)
[2020-08-05] MEDS: POTASSIUM BICARB/CIT ACID 25 MEQ TABLET.EFF PO SCH ×3 (08:07→21:50)
[2020-08-05] MEDS: PANTOPRAZOLE SODIUM 40 MG/VIAL IV SCH (08:07)
[2020-08-05] MEDS: FERROUS SULFATE 325MG TABLET PO SCH ×3 (08:08→17:01)
[2020-08-05] MEDS: BISACODYL 5MG TABLET PO SCH (08:08)
[2020-08-05] MEDS: ENOXAPARIN 40MG/0.4ML SYR SUBCUT SCH (08:08)
[2020-08-05] MEDS: BLOOD SUGAR DIAGNOSTIC STRIP TEST SCH ×4 (08:08→21:50)
[2020-08-05] MEDS: DEXT 5%/0.45% NACL 1000ML 1,000 ML IV SCH ×2 (08:10→18:55)
[2020-08-05 11:35] LABS: HEMATOCRIT. 28.3 % (36.0-48.0); HEMOGLOBIN. 9.1 g/dL (12.0-16.0); MEAN CORPUSCULAR HEMOGLOBIN 26.3 pg (28.0-32.0); MEAN PLATELET VOLUME 7.1 fl (7.4-10.4); PLATELET 497 x1000/uL (130-400); RED BLOOD CELL COUNT 3.45 mill/uL (4.2-5.4); RED CELL DISTRIBUTION WIDTH 26.6 % (11.6-14.6)
[2020-08-05 12:40] LABS: CHLORIDE 102 mEq/L (98-107)
[2020-08-05 12:45] LABS: PHOSPHORUS 1.6 mg/dL (2.5-4.9)
[2020-08-05 13:40] LABS: PLATELET ESTIMATE INCREASED
[2020-08-05] MEDS: FLUCONAZOLE 400MG/200ML BAG 200 ML IV SCH (17:05)
[2020-08-06] VITALS (7 sets, daily range): BP systolic 0–138; BP diastolic 0–68
[2020-08-06] MEDS: TEMAZEPAM 15MG CAPSULE PO PRN (00:42)
[2020-08-06] MEDS: KETOROLAC 15MG/ML VIAL IV PRN ×2 (00:42→04:55)
[2020-08-06] MEDS: MEROPENEM 1,000 MG in SODIUM CHLORIDE 0.9% 100 ML IV SCH ×3 (02:37→17:01)
[2020-08-06] MEDS: DEXT 5%/0.45% NACL 1000ML 1,000 ML IV SCH (05:05)
[2020-08-06 06:54] LABS: CHLORIDE 104 mEq/L (98-107)
[2020-08-06 07:01] LABS: BASOPHILS % 0.5 % (0.0-2.0); EOSINOPHILS % 3.7 % (0.0-5.0); HEMATOCRIT. 30.9 % (36.0-48.0); HEMOGLOBIN. 9.9 g/dL (12.0-16.0); LYMPHOCYTES % 8.5 % (20.0-50.0); MEAN CORPUSCULAR HEMOGLOBIN 25.9 pg (28.0-32.0); MEAN CORPUSCULAR VOLUME 80.4 fL (81.0-99.0); MEAN PLATELET VOLUME 6.6 fl (7.4-10.4); MONOCYTES % 12.4 % (2.0-8.0); NEUTROPHILS % 74.9 % (40.0-76.0); PLATELET 505 x1000/uL (130-400); RED BLOOD CELL COUNT 3.84 mill/uL (4.2-5.4)
[2020-08-06] MEDS: BLOOD SUGAR DIAGNOSTIC STRIP TEST SCH ×4 (07:52→21:27)
[2020-08-06] MEDS: INSULIN LISPRO 100 UNITS/ML SUBCUT SCH ×4 (07:52→21:00)
[2020-08-06] MEDS: PANTOPRAZOLE SODIUM 40 MG/VIAL IV SCH (08:07)
[2020-08-06] MEDS: POTASSIUM BICARB/CIT ACID 25 MEQ TABLET.EFF PO SCH (08:07)
[2020-08-06] MEDS: BISACODYL 5MG TABLET PO SCH (08:07)
[2020-08-06] MEDS: ENOXAPARIN 40MG/0.4ML SYR SUBCUT SCH (08:07)
[2020-08-06] MEDS: POTASSIUM-SODIUM PHOSPHATE POWDER PACKET PO SCH (08:07)
[2020-08-06] MEDS: FERROUS SULFATE 325MG TABLET PO SCH ×3 (08:07→17:00)
[2020-08-06] MEDS: POLYETHYLENE GLYCOL 3350 (17GM) 1 DOSE PACK PO SCH (08:08)
[2020-08-06] MEDS ORDERED: POTASSIUM CHLORIDE INJ 40 MEQ in DEXT 5% WATER 250 ML IV NR (12:00)
[2020-08-06] MEDS ORDERED: POTASSIUM PHOS,M-BASIC-D-BASIC 20 MMOL in DEXT 5% WATER 243.3333 ML IV ONE (14:00)
[2020-08-06] MEDS: HYDROCODONE/ACETAMINOPHEN 5/325MG TABLET PO PRN ×2 (16:57→23:33)
[2020-08-06] MEDS: FLUCONAZOLE 400MG/200ML BAG 200 ML IV SCH (16:57)
[2020-08-07] VITALS (9 sets, daily range): BP systolic 0–139; BP diastolic 0–80
[2020-08-07] MEDS: MEROPENEM 1,000 MG in SODIUM CHLORIDE 0.9% 100 ML IV SCH ×3 (02:10→18:54)
[2020-08-07 05:50] LABS: PHOSPHORUS 2.8 mg/dL (2.5-4.9)
[2020-08-07] MEDS: BLOOD SUGAR DIAGNOSTIC STRIP TEST SCH ×4 (07:33→21:30)
[2020-08-07] MEDS: INSULIN LISPRO 100 UNITS/ML SUBCUT SCH ×4 (07:33→21:00)
[2020-08-07] MEDS: HYDROCODONE/ACETAMINOPHEN 5/325MG TABLET PO PRN ×3 (07:38→22:15)
[2020-08-07] MEDS: FERROUS SULFATE 325MG TABLET PO SCH ×3 (08:03→18:51)
[2020-08-07] MEDS: POLYETHYLENE GLYCOL 3350 (17GM) 1 DOSE PACK PO SCH ×2 (09:00→10:17)
[2020-08-07] MEDS: BISACODYL 5MG TABLET PO SCH (09:25)
[2020-08-07] MEDS: ENOXAPARIN 40MG/0.4ML SYR SUBCUT SCH (10:17)
[2020-08-07] MEDS: PANTOPRAZOLE SODIUM 40 MG/VIAL IV SCH (10:17)
[2020-08-07] MEDS: POTASSIUM-SODIUM PHOSPHATE POWDER PACKET PO SCH ×2 (15:00→21:00)
[2020-08-07] MEDS: FLUCONAZOLE 400MG/200ML BAG 200 ML IV SCH (16:37)
[2020-08-07] MEDS: POTASSIUM BICARB/CIT ACID 25 MEQ TABLET.EFF PO SCH (17:50)
[2020-08-08] VITALS: BP 141/46
[2020-08-08] MEDS: MEROPENEM 1,000 MG in SODIUM CHLORIDE 0.9% 100 ML IV SCH ×2 (02:12→10:58)
[2020-08-08] MEDS ORDERED: DIPHENHYDRAMINE 50MG/ML VIAL IV PRN (03:45)
[2020-08-08 04:00] VITALS: BP 141/61
[2020-08-08 06:33] LABS: HEMATOCRIT. 30.9 % (36.0-48.0); HEMOGLOBIN. 10.3 g/dL (12.0-16.0); MEAN CORPUSCULAR HEMOGLOBIN 26.9 pg (28.0-32.0); MEAN CORPUSCULAR VOLUME 80.9 fL (81.0-99.0); MEAN PLATELET VOLUME 6.6 fl (7.4-10.4); PLATELET 526 x1000/uL (130-400); RED BLOOD CELL COUNT 3.82 mill/uL (4.2-5.4); RED CELL DISTRIBUTION WIDTH 25.7 % (11.6-14.6)
[2020-08-08 06:38] LABS: CHLORIDE 99 mEq/L (98-107)
[2020-08-08 06:53] LABS: PHOSPHORUS 3.2 mg/dL (2.5-4.9)
[2020-08-08] MEDS: BLOOD SUGAR DIAGNOSTIC STRIP TEST SCH ×4 (06:59→20:36)
[2020-08-08] MEDS: INSULIN LISPRO 100 UNITS/ML SUBCUT SCH ×4 (07:50→20:38)
[2020-08-08] MEDS: POTASSIUM BICARB/CIT ACID 25 MEQ TABLET.EFF PO SCH ×3 (07:50→17:37)
[2020-08-08 08:00] VITALS: BP 135/67
[2020-08-08] MEDS: POTASSIUM-SODIUM PHOSPHATE POWDER PACKET PO SCH ×3 (09:00→17:00)
[2020-08-08] MEDS: POLYETHYLENE GLYCOL 3350 (17GM) 1 DOSE PACK PO SCH ×2 (09:00→10:58)
[2020-08-08] MEDS: BISACODYL 5MG TABLET PO SCH (10:57)
[2020-08-08] MEDS: FERROUS SULFATE 325MG TABLET PO SCH ×3 (10:57→17:35)
[2020-08-08] MEDS: ENOXAPARIN 40MG/0.4ML SYR SUBCUT SCH (10:57)
[2020-08-08] MEDS: PANTOPRAZOLE SODIUM 40 MG/VIAL IV SCH (10:57)
[2020-08-08] MEDS: HYDROCODONE/ACETAMINOPHEN 5/325MG TABLET PO PRN ×2 (10:57→17:36)
[2020-08-08 12:00] VITALS: BP 99/67
[2020-08-08 12:03] LABS: PLATELET ESTIMATE INCREASED
[2020-08-08 16:00] VITALS: BP 148/67
[2020-08-08 20:00] VITALS: BP 141/64
[2020-08-09] VITALS: BP 135/68
[2020-08-09] MEDS: HYDROCODONE/ACETAMINOPHEN 5/325MG TABLET PO PRN ×2 (06:24→13:33)
[2020-08-09] MEDS: BLOOD SUGAR DIAGNOSTIC STRIP TEST SCH ×4 (07:12→21:37)
[2020-08-09] MEDS: POTASSIUM BICARB/CIT ACID 25 MEQ TABLET.EFF PO SCH ×2 (07:50→17:16)
[2020-08-09] MEDS: INSULIN LISPRO 100 UNITS/ML SUBCUT SCH ×4 (08:07→21:37)
[2020-08-09 08:16] VITALS: BP 120/68
[2020-08-09] MEDS: BISACODYL 5MG TABLET PO SCH (08:19)
[2020-08-09] MEDS: FERROUS SULFATE 325MG TABLET PO SCH ×3 (08:20→18:25)
[2020-08-09] MEDS: POLYETHYLENE GLYCOL 3350 (17GM) 1 DOSE PACK PO SCH (09:00)
[2020-08-09] MEDS: POTASSIUM-SODIUM PHOSPHATE POWDER PACKET PO SCH ×2 (09:00→17:16)
[2020-08-09] MEDS: METRONIDAZOLE 500MG TABLET PO SCH ×2 (09:40→21:36)
[2020-08-09] MEDS: PANTOPRAZOLE SODIUM 40 MG/VIAL IV SCH (09:40)
[2020-08-09] MEDS: ENOXAPARIN 40MG/0.4ML SYR SUBCUT SCH (09:41)
[2020-08-09] MEDS: LEVOFLOXACIN 500MG TABLET PO SCH (11:54)
[2020-08-09 12:00] VITALS: BP 126/70
[2020-08-09 16:06] VITALS: BP 116/63
[2020-08-09 16:16] VITALS: BP 116/62
[2020-08-09 20:00] VITALS: BP 118/65
[2020-08-10] VITALS: BP 117/65
[2020-08-10] MEDS ORDERED: TEMAZEPAM 15MG CAPSULE PO PRN ×2 (00:15→20:00)
[2020-08-10] MEDS: HYDROCODONE/ACETAMINOPHEN 5/325MG TABLET PO PRN ×3 (00:17→17:26)
[2020-08-10 04:00] VITALS: BP 118/67
[2020-08-10] MEDS: BLOOD SUGAR DIAGNOSTIC STRIP TEST SCH ×4 (07:21→21:00)
[2020-08-10] MEDS: POTASSIUM BICARB/CIT ACID 25 MEQ TABLET.EFF PO SCH ×2 (07:50→17:32)
[2020-08-10 07:54] LABS: BASOPHILS % 0.4 % (0.0-2.0); EOSINOPHILS % 2.6 % (0.0-5.0); HEMATOCRIT. 31.9 % (36.0-48.0); HEMOGLOBIN. 10.5 g/dL (12.0-16.0); LYMPHOCYTES % 11.4 % (20.0-50.0); MEAN CORPUSCULAR HEMOGLOBIN 26.7 pg (28.0-32.0); MEAN CORPUSCULAR VOLUME 81.2 fL (81.0-99.0); MEAN PLATELET VOLUME 6.3 fl (7.4-10.4); MONOCYTES % 12.6 % (2.0-8.0); PLATELET 497 x1000/uL (130-400); RED BLOOD CELL COUNT 3.92 mill/uL (4.2-5.4); RED CELL DISTRIBUTION WIDTH 26.1 % (11.6-14.6)
[2020-08-10 08:04] LABS: CHLORIDE 99 mEq/L (98-107)
[2020-08-10 08:10] VITALS: BP 117/62
[2020-08-10 08:10] LABS: PHOSPHORUS 3.7 mg/dL (2.5-4.9)
[2020-08-10] MEDS: POLYETHYLENE GLYCOL 3350 (17GM) 1 DOSE PACK PO SCH (09:00)
[2020-08-10] MEDS: PANTOPRAZOLE SODIUM 40 MG/VIAL IV SCH (09:00)
[2020-08-10] MEDS: POTASSIUM-SODIUM PHOSPHATE POWDER PACKET PO SCH ×2 (09:00→17:00)
[2020-08-10] MEDS: METRONIDAZOLE 500MG TABLET PO SCH ×2 (09:48→20:56)
[2020-08-10] MEDS: LEVOFLOXACIN 500MG TABLET PO SCH (09:48)
[2020-08-10] MEDS: FERROUS SULFATE 325MG TABLET PO SCH ×3 (09:48→17:39)
[2020-08-10] MEDS: ENOXAPARIN 40MG/0.4ML SYR SUBCUT SCH (09:49)
[2020-08-10] MEDS: BISACODYL 5MG TABLET PO SCH (10:01)
[2020-08-10] MEDS: INSULIN LISPRO 100 UNITS/ML SUBCUT SCH ×4 (10:12→21:00)
[2020-08-10 12:31] VITALS: BP 119/66
[2020-08-10 16:52] VITALS: BP 114/64
[2020-08-10 20:00] VITALS: BP 125/72
[2020-08-11] VITALS: BP 135/71
[2020-08-11] MEDS: HYDROCODONE/ACETAMINOPHEN 5/325MG TABLET PO PRN ×2 (00:57→09:49)
[2020-08-11 04:00] VITALS: BP 117/57
[2020-08-11] MEDS: BLOOD SUGAR DIAGNOSTIC STRIP TEST SCH ×3 (06:42→16:59)
[2020-08-11] MEDS ORDERED: PANTOPRAZOLE 40MG DR TABLET PO SCH (07:20)
[2020-08-11] MEDS: INSULIN LISPRO 100 UNITS/ML SUBCUT SCH ×3 (07:50→18:09)
[2020-08-11 08:00] VITALS: BP 117/70
[2020-08-11] MEDS: BISACODYL 5MG TABLET PO SCH (09:00)
[2020-08-11] MEDS: POLYETHYLENE GLYCOL 3350 (17GM) 1 DOSE PACK PO SCH (09:00)
[2020-08-11] MEDS: METRONIDAZOLE 500MG TABLET PO SCH (09:29)
[2020-08-11] MEDS: FERROUS SULFATE 325MG TABLET PO SCH ×3 (09:29→18:03)
[2020-08-11] MEDS: ENOXAPARIN 40MG/0.4ML SYR SUBCUT SCH (09:32)
[2020-08-11] MEDS: POTASSIUM-SODIUM PHOSPHATE POWDER PACKET PO SCH (09:47)
[2020-08-11] MEDS: POTASSIUM BICARB/CIT ACID 25 MEQ TABLET.EFF PO SCH (09:47)
[2020-08-11 12:00] VITALS: BP 108/62
[2020-08-11] MEDS: LEVOFLOXACIN 500MG TABLET PO SCH (13:02)
[2020-08-11] MEDS ORDERED: HYDROCODONE/ACETAMINOPHEN 5/325MG TABLET PO PRN (13:30)
[2020-08-11 16:00] VITALS: BP 123/68
[2020-08-11 18:39] VITALS: BP 123/68
== END 2020-08-11 19:40 | DRG 853 ==
LOC: OR 05:23 → CVICU 18:56 → 3WST 07-12 23:03 → 6WST 07-16 00:46 → MICUSO 07-23 15:10 → 5EST 07-27 15:50 → 6WST 08-07 05:10
PROVIDERS: ADMIT Surgery; ATTEND Surgery
PROC: 0D1N0Z4 Bypass Sigmoid Colon to Cutaneous, Open Approach (ICD-10-PCS; principal; 2020-07-09)
PROC: 0DTP0ZZ Resection of Rectum, Open Approach (ICD-10-PCS; 2020-07-09)
PROC: 30233N1 Transfusion of Nonautologous Red Blood Cells into Peripheral Vein, Percutaneous Approach (ICD-10-PCS; 2020-07-09)
PROC: 0DBN0ZZ Excision of Sigmoid Colon, Open Approach (ICD-10-PCS; 2020-07-09)
PROC: 0T9B70Z Drainage of Bladder with Drainage Device, Via Natural or Artificial Opening (ICD-10-PCS; 2020-07-09)
PROC: 02H633Z Insertion of Infusion Device into Right Atrium, Percutaneous Approach (ICD-10-PCS; 2020-07-14)
PROC: 0DBN0ZZ Excision of Sigmoid Colon, Open Approach (ICD-10-PCS; 2020-07-23)
PROC: 0D1N0Z4 Bypass Sigmoid Colon to Cutaneous, Open Approach (ICD-10-PCS; 2020-07-23)
PROC: 3E1M38Z Irrigation of Peritoneal Cavity using Irrigating Substance, Percutaneous Approach (ICD-10-PCS; 2020-07-23)
DX: A41.9 Sepsis, unspecified organism (principal); K65.9 Peritonitis, unspecified; E43 Unspecified severe protein-calorie malnutrition; K65.8 Other peritonitis; C20 Malignant neoplasm of rectum; C18.7 Malignant neoplasm of sigmoid colon; E87.1 Hypo-osmolality and hyponatremia; K92.1 Melena; G62.81 Critical illness polyneuropathy; C56.1 Malignant neoplasm of right ovary; L02.211 Cutaneous abscess of abdominal wall; D64.9 Anemia, unspecified; E83.39 Other disorders of phosphorus metabolism; E11.9 Type 2 diabetes mellitus without complications; E87.6 Hypokalemia; J30.1 Allergic rhinitis due to pollen; E83.42 Hypomagnesemia; Z20.822 Contact with and (suspected) exposure to COVID-19; G89.18 Other acute postprocedural pain; Z87.891 Personal history of nicotine dependence; Z90.710 Acquired absence of both cervix and uterus; Z90.721 Acquired absence of ovaries, unilateral; Z79.84 Long term (current) use of oral hypoglycemic drugs; Z68.26 Body mass index [BMI] 26.0-26.9, adult; Z43.3 Encounter for attention to colostomy; Z85.048 Personal history of other malignant neoplasm of rectum, rectosigmoid junction, and anus
CPT/HCPCS: 36415; 71045; 71275; 74176; 76937; 80048; 80053; 80076; 82270; 82962; 83036; 83540; 83550; 83735; 84100; 84132; 84439; 84443; 84481; 84484; 85014; 85018; 85025; 85027; 85044; 85049; 85384; 86850; 86900; 86920; 87070; 87077; 87186; 87426; 88307; 93005; 93306; 93970; 97110; 97162; 97164; 97166; 97168; 97530; 97535; C1725; C1769; C1893; C9113; J0278; J0330; J0690; J1100; J1170; J1200; J1450; J1650; J1815; J1885; J2185; J2250; J2270; J2370; J2405; J2543; J2704; J2710; J2765; J3010; J3475; J3480; J3490; J7040; J7050; J7060; P9016; Q9963; Q9967; A4315

== ENCOUNTER → 2020-09-17 | Outpatient (CLI) | payer BC ==
[~2020-09-17] MED LIST changes: +EMPA10TA MT; -EMPA10TA PO; +FAMO20TA8 PO; +FERR325T6 PO; +HYDR-4346 PO; +KDUR10 PO; +MAGN200T4 PO; -METF-416 PO; +METF500S7 PO
[2020-09-17 10:58] LABS: CHLORIDE 105 mEq/L (98-107)
[2020-09-17 10:59] LABS: BASOPHILS % 0.2 % (0.0-2.0); EOSINOPHILS % 1.3 % (0.0-5.0); HEMATOCRIT. 34.8 % (36.0-48.0); HEMOGLOBIN. 11.5 g/dL (12.0-16.0); LYMPHOCYTES % 14.8 % (20.0-50.0); MEAN CORPUSCULAR HEMOGLOBIN 27.9 pg (28.0-32.0); MEAN CORPUSCULAR VOLUME 84.8 fL (81.0-99.0); MEAN PLATELET VOLUME 6.7 fl (7.4-10.4); MONOCYTES % 8.3 % (2.0-8.0); NEUTROPHILS % 75.4 % (40.0-76.0); PLATELET 458 x1000/uL (130-400); RED BLOOD CELL COUNT 4.11 mill/uL (4.2-5.4); RED CELL DISTRIBUTION WIDTH 17.4 % (11.6-14.6)
== END | disposition home or self-care (01) ==
LOC: LAB 10:01
DX: C20 Malignant neoplasm of rectum (principal)
CPT/HCPCS: 36415; 80053; 82378; 85025

== ENCOUNTER → 2020-09-30 | Outpatient (CLI) | payer BC ==
[2020-09-30 13:01] LABS: BASOPHILS % 0.2 % (0.0-2.0); HEMATOCRIT. 33.3 % (36.0-48.0); HEMOGLOBIN. 11.4 g/dL (12.0-16.0); LYMPHOCYTES % 13.6 % (20.0-50.0); MEAN CORPUSCULAR HEMOGLOBIN 28.7 pg (28.0-32.0); MEAN CORPUSCULAR VOLUME 83.7 fL (81.0-99.0); MEAN PLATELET VOLUME 6.6 fl (7.4-10.4); MONOCYTES % 9.1 % (2.0-8.0); NEUTROPHILS % 76.1 % (40.0-76.0); PLATELET 450 x1000/uL (130-400); RED BLOOD CELL COUNT 3.98 mill/uL (4.2-5.4); RED CELL DISTRIBUTION WIDTH 15.5 % (11.6-14.6)
[2020-09-30 13:15] LABS: CHLORIDE 103 mEq/L (98-107)
[2020-09-30 13:25] LABS: T4 FREE 1.05 ng/dL (0.76-1.46)
== END | disposition home or self-care (01) ==
LOC: LAB 12:26
PROVIDERS: ATTEND Internal Medicine Pulmonary Disease
DX: C18.9 Malignant neoplasm of colon, unspecified (principal); E11.21 Type 2 diabetes mellitus with diabetic nephropathy; D64.9 Anemia, unspecified
CPT/HCPCS: 36415; 80053; 82248; 83036; 83735; 84439; 84443; 84481; 85025